=== PATIENT | female | born 1955 | race Caucasian/White ===

== ENCOUNTER 2019-03-19 12:03 | Emergency (ER) | payer OTHER ==
[2019-03-19] MEDS ORDERED: NA CHLORIDE 0.9% 1,000 ML ONE (12:24)
[2019-03-19] MEDS ORDERED: ONDANSETRON 4 MG/2 ML VIAL ONE (12:32)
[2019-03-19] MEDS ORDERED: MORPHINE 4 MG/ML SYR ONE (12:32)
[2019-03-19 12:57] LABS: Absolute Lymphocytes (CBC) 2.1 K/uL (0.7-4.9); Basophils % 0.5 % (0-1.3); Hematocrit 35.9 % (36.0-45.0); Lymphocytes % 30.5 % (15.3-44.8); MPV 9.3 fL (7.6-11.3); RBC Red Blood Cell Count 3.66 M/uL (3.86-4.86)
[2019-03-19 13:04] LABS: Albumin 3.9 g/dL (3.4-5.0); Bilirubin Direct 0.2 mg/dL (0-0.2); Bilirubin Total 0.6 mg/dL (0.2-1.0); Potassium 3.7 mmol/L (3.5-5.1); Protein, Total 6.7 g/dL (6.4-8.2)
--- NOTE | 2019-03-19 13:38 | RAD REPORT ---
EXAM DESCRIPTION: RAD - Chest Pa And Lat (2 Views) - 03/19/2019 1:12 pm CLINICAL HISTORY: DYSPNEAdyspnea COMPARISON: None. TECHNIQUE: PA and lateral views of the chest were obtained. FINDINGS: The lungs are clear. Heart size is normal and central vasculature is within normal limit s. No pleural effusion or pneumothorax seen. No acute bony finding noted. No aortic abnormality. IMPRESSION: No acute cardiopulmonary process.
--- NOTE | 2019-03-19 14:12 | RAD REPORT ---
EXAM DESCRIPTION: CT - Abdomen Pelvis W Contrast - 03/19/2019 1:42 pm CLINICAL HISTORY: ABD PAIN, patient details one-month right-sided abdominal pain history with episod ic vomiting, history of prior bowel perforation and diverticulitis, prior appendectomy COMPARISON: CT study October 2016 TECHNIQUE: Biphasic, helical CT imaging of the abdomen and pelvis was performed following 100 ml non -ionic IV contrast. No oral contrast given. All CT scans are performed using dose optimization technique as appropriate and may include automated exposure control or mA/KV adjustment according to patient size. FINDINGS: No suspicious findings in the lung bases. The liver, spleen, and pancreas show no suspicious findings. Gallbladder and biliary tree are also wi thout suspicious finding. Symmetric renal function is seen with no hydronephrosis or suspicious renal mass. No pyelonephritis o r acute parenchymal process. Urinary bladder is mostly contracted. No bladder calculus. Uterus and ov jennifer show no suspicious findings. Right ovary appears to contain a small remnant cysts similar to 20 17. No enlarging ovarian or adnexal process. No adrenal abnormalities. No stomach or small bowel acute finding. Appendix is absent. Milligan of the colon are mildly prominent throughout. Diverticulosis is present but minimal. No focal mass is present. A mild diffuse colitis w ould be possible. No significant inflammatory stranding adjacent to the colon. No free air, free fluid or pneumatosis. No hernia, mass or bulky lymphadenopathy. No suspicious bony findings. Dense arterial tree calcifications are present. IMPRESSION: No obstruction, free air or surgically emergent finding. Patient has minimal sigmoid diverticulosis but no diverticulitis. Milligan of the colon are mildly prominent without adjacent inflammatory stranding or mass. A mild colit is is possible. No abnormality. Gallbladder, biliary tree and pancreas show no suspicious findings.
--- NOTE | 2019-03-19 14:36 | ER ---
Nurse's Notes [facility] Name: Tori Rodríguez Age: 63 yrs Sex: Female : 1955 Arrival Date: 03/19/2019 Time: 12:06 Bed 15 Private MD: Diagnosis: Generalized abdominal pain-colitis Presentation: 03/19 12:25 Presenting complaint: Patient states: right abd pain X 1 month, was zain at [facility] center and sent to ER, +vomiting. Transition of care: patient was not received from another setting of care. Onset of symptoms was February 2019. Risk Assessment: Do you want to hurt yourself or someone else? Patient reports no desire to harm self or others. Initial Sepsis Screen: Does the patient meet any 2 criteria? No. Patient's initial sepsis screen is negative. Does the patient have a suspected source of infection? No. Patient's initial sepsis screen is negative. Care prior to arrival: None. 12:25 Method Of Arrival: Ambulatory iw 12:25 Acuity: BRI 3 iw Historical: - Allergies: 12:29 No Known Allergies; iw - Home Meds: 12:29 Abilify 2 mg oral tab nightly [Active]; buspirone 15 mg Oral tab 1 tab 2 times per day iw [Active]; duloxetine 60 mg oral cpDR 1 cap once daily [Active]; ferrous sulfate 325 mg (65 mg iron) Oral tab twice a day [Active]; ascorbic acid (vitamin C) 1,000 mg tab daily [Active]; carvedilol 12.5 mg oral tab 1 tab 2 times per day [Active]; gabapentin 600 mg oral tab daily [Active]; trazodone 150 mg Oral tab nightly [Active]; zolpidem 10 mg Oral tab 1 tab once daily [Active]; Ventolin HFA inhalation Nebulizer [Active]; bisacodyl 5 mg Oral TbEC 2 tabs once daily [Active]; docusate sodium 100 mg Oral tab 3 tabs once daily [Active]; - PMHx: 12:29 BOWEL PERFORATION; Diverticulitis; iw 12:54 Lung cancer; iw - PSHx: 12:29 Appendectomy; Tonsillectomy; Carpal Tunnel Repair; iw - Immunization history:: Adult Immunizations up to date. - Social history:: Smoking status: Patient uses tobacco products, smokes one pack cigarettes per day. - Ebola Screening: : Patient negative for fever greater than or equal to 101.5 degrees Fahrenheit, and additional compatible Ebola Virus Disease symptoms Patient denies exposure to infectious person Patient denies travel to an Ebola-affected area in the 21 days before illness onset No symptoms or risks identified at this time. Screenin:52 Abuse screen: Denies threats or abuse. Denies injuries from another. Nutritional ph screening: No deficits noted. Tuberculosis screening: No symptoms or risk factors identified. Fall Risk None identified. Assessment: 12:53 General: Appears in no apparent distress. uncomfortable, Behavior is calm, cooperative, ph appropriate for age, Denies fever. Pain: Complains of pain in right upper quadrant Pain radiates to right lower quadrant. Neuro: Level of Consciousness is awake, alert, obeys commands, Oriented to person, place, time, situation. Cardiovascular: Capillary refill < 3 seconds in bilateral fingers Patient's skin is warm and dry. Respiratory: Airway is patent Respiratory effort is even, unlabored, Respiratory pattern is regular, symmetrical. GI: Abdomen is round non-distended, Abd is soft X 4 quads Abdomen is tender to palpation in right upper quadrant Reports upper abdominal pain, bloating, nausea, vomiting. Derm: Skin is intact, is healthy with good turgor, Skin is pink, warm \T\ dry. Musculoskeletal: Circulation, motion, and sensation intact. Range of motion: intact in all extremities. 14:13 Reassessment: Patient appears in no apparent distress at this time. Patient and/or ph family updated on plan of care and expected duration. Pain level reassessed. Patient is alert, oriented x 3, equal unlabored respirations, skin warm/dry/pink. Pt resting quietly, awaiting CT results, VSS. 14:51 Reassessment: Patient appears in no apparent distress at this time. Patient and/or ph family updated on plan of care and expected duration. Pain level reassessed. Patient is alert, oriented x 3, equal unlabored respirations, skin warm/dry/pink. PT d/c home. Vital Signs: 12:29 BP 154 / 92; Pulse 59; Resp 16; Temp 98.2; Pulse Ox 99% on R/A; Weight 68.95 kg; Height iw 5 ft. 3 in. (160.02 cm); Pain 10/10; 14:13 BP 151 / 89; Pulse 63; Resp 20; Pulse Ox 99% on R/A; ph 14:52 BP 148 / 78; Pulse 61; Resp 16; Temp 97.8; Pulse Ox 100% on R/A; ph 12:29 Body Mass Index 26.93 (68.95 kg, 160.02 cm) iw ED Course: 12:06 Patient arrived in ED. mr 12:08 Maria Fernanda Marin FNP-C [facility]. kb 12:08 Severiano Shah MD is Attending Physician. kb 12:16 Tori Eddy, TAYLOR is Primary Nurse. ph 12:26 Triage completed. iw 12:29 Arm band placed on. iw 12:30 Initial lab(s) drawn, by me, sent to lab. kj1 12:30 Inserted saline lock: 22 gauge in left antecubital area, using aseptic technique. Blood kj1 collected. 12:50 Patient has correct armband on for positive identification. Placed in gown. Bed in low ph position. Call light in reach. Side rails up X 1. Pulse ox on. NIBP on. Door closed. Noise minimized. Warm blanket given. 12:50 Inserted saline lock: 22 gauge in left antecubital area, using aseptic technique. Blood ph collected. 13:10 Chest Pa And Lat (2 Views) XRAY In Process Unspecified. EDMS 13:42 CT Abd/Pelvis - IV Contrast Only In Process Unspecified. EDMS 14:52 No provider procedures requiring assistance completed. IV discontinued, intact, ph bleeding controlled, No redness/swelling at site. Pressure dressing applied. Administered Medications: 12:44 Drug: NS 0.9% 1000 ml Route: IV; Rate: 1000 ml; Site: left antecubital; ph 14:54 Follow up: Response: No adverse reaction; IV Status: Completed infusion ph 12:44 Drug: Zofran 4 mg Route: IVP; Site: left antecubital; ph 14:55 Follow up: Response: No adverse reaction ph 12:45 Drug: morphine 4 mg Route: IVP; Site: left antecubital; ph 14:55 Follow up: Response: No adverse reaction ph Outcome: 14:35 Discharge ordered by . kb 14:52 Discharged to home ambulatory, with significant other. ph 14:52 Condition: good 14:52 Discharge instructions given to patient, Instructed on discharge instructions, follow up and referral plans. medication usage, Demonstrated understanding of instructions, follow-up care, medications, Prescriptions given X 4. 14:55 Patient left the ED. ph Signatures: Dispatcher [employer] EDMS Maria Fernanda Marin, MARK-C FILTERING MACHINE TENDER HELPER-Kierra BlairKenyatta valle Elena Denney, TAYLOR VAZQUEZ iw Tori Eddy RN RN Tracy Marin kj1 Corrections: (The following items were deleted from the chart) 14:18 14:13 Pulse 63bpm; Resp 20bpm; Pulse Ox 99% RA; ph ph
--- NOTE | 2019-03-19 14:36 | EDPHYS ---
Physician Documentation [facility] Name: Tori Rodríguez Age: 63 yrs Sex: Female : 1955 Arrival Date: 03/19/2019 Time: 12:06 Bed 15 Private MD: ED Physician Severiano Shah HPI: 03/19 12:53 This 63 yrs old Female presents to ER via Ambulatory with complaints of kb Abdominal Pain, Shortness Of Breath. 12:53 The patient presents with abdominal pain right lower quadrant. Onset: The kb symptoms/episode began/occurred 1 month(s) ago. The symptoms do not radiate. Associated signs and symptoms: Pertinent positives: nausea, shortness of breath, vomiting. The symptoms are described as constant. Modifying factors: The symptoms are alleviated by nothing, the symptoms are aggravated by nothing. Severity of pain: At its worst the pain was moderate in the emergency department the pain is unchanged. The patient has not experienced similar symptoms in the past. The patient has not recently seen a physician. Pt reports abd pain and that started a month ago. States "I had a bowel perforation and the surgeon wanted to take out 12 inches of bowel and place a colostomy but I refused and now I think my colon is acting up again." Also reports shortness of breath. Was diagnosed with lung cancer 7 or 8 months ago, but hasn't seen an oncologist or had any treatment. States she isn't sure if she even wants treatment. Still smokes cigarettes daily. Historical: - Allergies: 12:29 No Known Allergies; iw - Home Meds: 12:29 Abilify 2 mg oral tab nightly [Active]; buspirone 15 mg Oral tab 1 tab 2 times per day iw [Active]; duloxetine 60 mg oral cpDR 1 cap once daily [Active]; ferrous sulfate 325 mg (65 mg iron) Oral tab twice a day [Active]; ascorbic acid (vitamin C) 1,000 mg tab daily [Active]; carvedilol 12.5 mg oral tab 1 tab 2 times per day [Active]; gabapentin 600 mg oral tab daily [Active]; trazodone 150 mg Oral tab nightly [Active]; zolpidem 10 mg Oral tab 1 tab once daily [Active]; Ventolin HFA inhalation Nebulizer [Active]; bisacodyl 5 mg Oral TbEC 2 tabs once daily [Active]; docusate sodium 100 mg Oral tab 3 tabs once daily [Active]; - PMHx: 12:29 BOWEL PERFORATION; Diverticulitis; iw 12:54 Lung cancer; iw - PSHx: 12:29 Appendectomy; Tonsillectomy; Carpal Tunnel Repair; iw - Immunization history:: Adult Immunizations up to date. - Social history:: Smoking status: Patient uses tobacco products, smokes one pack cigarettes per day. - Ebola Screening: : Patient negative for fever greater than or equal to 101.5 degrees Fahrenheit, and additional compatible Ebola Virus Disease symptoms Patient denies exposure to infectious person Patient denies travel to an Ebola-affected area in the 21 days before illness onset No symptoms or risks identified at this time. ROS: 12:52 Constitutional: Negative for fever, chills, and weight loss, ENT: Negative for injury, kb pain, and discharge, Neck: Negative for injury, pain, and swelling, Cardiovascular: Negative for chest pain, palpitations, and edema, Back: Negative for injury and pain, : Negative for injury, bleeding, discharge, and swelling, MS/Extremity: Negative for injury and deformity, Skin: Negative for injury, rash, and discoloration, Neuro: Negative for headache, weakness, numbness, tingling, and seizure. 12:52 Respiratory: Positive for shortness of breath. 12:52 Abdomen/GI: Positive for abdominal pain, vomiting. Exam: 12:52 Constitutional: This is a well developed, well nourished patient who is awake, alert, kb and in no acute distress. Head/Face: Normocephalic, atraumatic. ENT: Nares patent. No nasal discharge, no septal abnormalities noted. Tympanic membranes are normal and external auditory canals are clear. Oropharynx with no redness, swelling, or masses, exudates, or evidence of obstruction, uvula midline. Mucous membranes moist. Neck: Trachea midline, no thyromegaly or masses palpated, and no cervical lymphadenopathy. Supple, full range of motion without nuchal rigidity, or vertebral point tenderness. No Meningismus. Chest/axilla: Normal chest wall appearance and motion. Nontender with no deformity. No lesions are appreciated. Cardiovascular: Regular rate and rhythm with a normal S1 and S2. No gallops, murmurs, or rubs. Normal PMI, no JVD. No pulse deficits. Respiratory: Lungs have equal breath sounds bilaterally, clear to auscultation and percussion. No rales, rhonchi or wheezes noted. No increased work of breathing, no retractions or nasal flaring. Skin: Warm, dry with normal turgor. Normal color with no rashes, no lesions, and no evidence of cellulitis. MS/ Extremity: Pulses equal, no cyanosis. Neurovascular intact. Full, normal range of motion. Neuro: Awake and alert, GCS 15, oriented to person, place, time, and situation. Cranial nerves II-XII grossly intact. Motor strength 5/5 in all extremities. Sensory grossly intact. Cerebellar exam normal. Normal gait. 12:52 Abdomen/GI: Inspection: abdomen appears normal, Bowel sounds: normal, in all quadrants, Palpation: soft, in all quadrants, mild abdominal tenderness, in the right upper quadrant, moderate abdominal tenderness, in the right lower quadrant. Vital Signs: 12:29 BP 154 / 92; Pulse 59; Resp 16; Temp 98.2; Pulse Ox 99% on R/A; Weight 68.95 kg; Height iw 5 ft. 3 in. (160.02 cm); Pain 10/10; 14:13 BP 151 / 89; Pulse 63; Resp 20; Pulse Ox 99% on R/A; ph 14:52 BP 148 / 78; Pulse 61; Resp 16; Temp 97.8; Pulse Ox 100% on R/A; ph 12:29 Body Mass Index 26.93 (68.95 kg, 160.02 cm) iw MDM: 12:15 Patient medically screened. kb 12:53 Data reviewed: vital signs, nurses notes. Data interpreted: Pulse oximetry: on room air kb is 99 %. Interpretation: normal. 14:33 Counseling: I had a detailed discussion with the patient and/or guardian regarding: the kb historical points, exam findings, and any diagnostic results supporting the discharge/admit diagnosis, lab results, radiology results, the need for outpatient follow up, a family practitioner, to return to the emergency department if symptoms worsen or persist or if there are any questions or concerns that arise at home. 03/19 12:22 Order name: Basic Metabolic Panel; Complete Time: 13:05 kb 03/19 12:22 Order name: CBC with Diff; Complete Time: 13:11 kb 03/19 12:22 Order name: Hepatic Function; Complete Time: 13:05 kb 03/19 12:22 Order name: Lipase; Complete Time: 13:05 kb 03/19 12:22 Order name: CT Abd/Pelvis - IV Contrast Only; Complete Time: 14:18 kb 03/19 12:22 Order name: Chest Pa And Lat (2 Views) XRAY; Complete Time: 13:41 kb 03/19 12:22 Order name: IV Saline Lock; Complete Time: 12:45 kb 03/19 12:22 Order name: Labs collected and sent; Complete Time: 12:45 kb Administered Medications: 12:44 Drug: NS 0.9% 1000 ml Route: IV; Rate: 1000 ml; Site: left antecubital; ph 14:54 Follow up: Response: No adverse reaction; IV Status: Completed infusion ph 12:44 Drug: Zofran 4 mg Route: IVP; Site: left antecubital; ph 14:55 Follow up: Response: No adverse reaction ph 12:45 Drug: morphine 4 mg Route: IVP; Site: left antecubital; ph 14:55 Follow up: Response: No adverse reaction ph Disposition: 03/19/19 14:35 Discharged to Home. Impression: Generalized abdominal pain - colitis. - Condition is Stable. - Discharge Instructions: Abdominal Pain, Adult, [id number]. - Prescriptions for Bentyl 20 mg Oral Tablet - take 1 tablet by ORAL route every 6 hours As needed; 20 tablet. Cipro 500 mg Oral Tablet - take 1 tablet by ORAL route every 12 hours for 10 days; 20 tablet. Flagyl 500 mg Oral Tablet - take 1 tablet by ORAL route every 8 hours for 10 days; 30 tablet. Zofran 4 mg Oral Tablet - take 1 tablet by ORAL route every 6 hours As needed; 20 tablet. - Medication Reconciliation Form, Thank You Letter, Antibiotic Education, Prescription Opioid Use form. - Follow up: Emergency Department; When: As needed; Reason: Worsening of condition. Follow up: Private Physician; When: 2 - 3 days; Reason: Recheck today's complaints, Continuance of care, Re-evaluation by your physician. Addendum: 03/20/2019 15:38 Co-signature as Attending Physician, Severiano Shah MD. g s Signatures: Dispatcher [employer] EDMaria Fernanda Ramos FNP-C CORE FINISHER-Ckb Elena Denney, RN RN iw Tori Eddy RN RN ShahSeveriano MD MD Corrections: (The following items were deleted from the chart) 03/19 14:55 14:35 03/19/2019 14:35 Discharged to Home. Impression: Generalized abdominal pain - ph colitis. Condition is Stable. Forms are Medication Reconciliation Form, Thank You Letter, Antibiotic Education, Prescription Opioid Use. Follow up: Emergency Department; When: As needed; Reason: Worsening of condition. Follow up: Private Physician; When: 2 - 3 days; Reason: Recheck today's complaints, Continuance of care, Re-evaluation by your physician. kb
[2019-03-19 15:07] VITALS: BP 148/78; TEMP 97.8; O2SAT 100
== END 2019-03-19 14:55 | disposition home or self-care (01) ==
LOC: ER 12:03
DX: K52.9 Noninfective gastroenteritis and colitis, unspecified (principal); F17.210 Nicotine dependence, cigarettes, uncomplicated; Z85.118 Personal history of other malignant neoplasm of bronchus and lung
CPT/HCPCS: 96361; 85025; 80048; 36415; 80076; 83690; 74177; 71046; 96375; 96374; 99284; Q9967; J7030; J2405

== ENCOUNTER 2020-03-30 14:01 | Emergency (ER) | payer OTHER, SELFPAY ==
[2020-03-30] MEDS ORDERED: ONDANSETRON 4 MG/2 ML VIAL ONE (14:35)
[2020-03-30] MEDS ORDERED: FENTANYL CITR 100 MCG/2 ML ONE ×2 (14:35→15:16)
[2020-03-30 14:56] LABS: Protime INR 1.06
[2020-03-30 15:10] LABS: ALT/SGPT 20 U/L (12-78); AST/SGOT 20 U/L (15-37); Albumin 2.8 g/dL (3.4-5.0); Alkaline Phosphatase 135 U/L (45-117); BUN Blood Urea Nitrogen 11 mg/dL (7-18); Bicarbonate 29 mmol/L (21-32); Bilirubin Direct 0.3 mg/dL (0-0.2); Bilirubin Total 0.6 mg/dL (0.2-1.0); Glucose Level 111 mg/dL (74-106); Magnesium 1.5 mg/dL (1.8-2.4); NT PRO-BNP 807 pg/mL (<125); Potassium 3.6 mmol/L (3.5-5.1); Protein, Total 6.9 g/dL (6.4-8.2); Sodium Level 138 mmol/L (136-145)
[2020-03-30 15:11] LABS: Absolute Lymphocytes (CBC) 0.7 K/uL (0.7-4.9); Basophils % 0.8 % (0-1.3); Hematocrit 24.4 % (36.0-45.0); Lymphocytes % 25.5 % (15.3-44.8); MPV 8.3 fL (7.6-11.3); RBC Red Blood Cell Count 2.59 M/uL (3.86-4.86)
--- NOTE | 2020-03-30 15:18 | RAD REPORT ---
EXAM DESCRIPTION: Tanvi Single View03/30/2020 3:00 pm CLINICAL HISTORY: cough COMPARISON: 2018 FINDINGS: Mild right upper lobe opacity without significant change likely chronic Lungs appear clear of acute infiltrate. The heart is normal size IMPRESSION: No acute abnormalities displayed
--- OUTSIDE RECORDS SUMMARY | 2020-03-30 15:26 | XMS REPORT | Continuity of Care Document ---
:1955 Author Organization [facility] t Address [address] [place] [address] Care Team Providers Name Role Phone Theo Baker MD Primary Care Physician Moise SALAZAR, L Attending Clinician Earnestine YUSUF S Attending Clinician JANET Attending Clinician Unavailable Problems Condition Condition Condition Status Onset Resolution Last Treating Co mments Source Name Details Category Date Date Treatment Clinician Date History of History of Problem Resolve Univers hyperlipid hyperlipid HL7.CCDAR2 d ity [place] Physici ans History of History of Problem Resolve Univers hypertensi hypertensi HL7.CCDAR2 d ity of on on [place] Physici ans 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 Family History Family Member Diagnosis Comments Start Date Stop Date Source Mother Family history of [facility] it[facility] of [place] Known health Physicians problems: none Father Family history of [facility] [place] Known health Physicians problems: none Social History Social Habit Start Date Stop Date Quantity Comments Source Sex Assigned At [facility] Medications Ordered Filled Start Stop Current Ordering Indication Dosage Frequency Signature Comments Components Source Medication Medication Date Date Medication? Clinician (SIG) Name Name Lisinopril Lisinopril Yes HALIMA TAKE ONE Univers 10 MG Oral 10 MG Oral 9-21 OKPALA TABLET BY ity of Tablet Tablet 15:20: N.P. MOUTH [place] 33 DAILY Physici ans Carvedilol Carvedilol Yes HALIMA TAKE 1 Univers 25 MG Oral 25 MG Oral 4-09 OKPALA TABLET BY ity of Tablet Tablet 00:00: N.P. MOUTH [place] 00 TWICE Physici DAILY WITH ans MEALS Gabapentin Gabapentin Yes HALIMA Q0.3333D TAKE 1 Univers 600 MG Oral 600 MG Oral 4-09 OKPALA TABLET 3 ity of Tablet Tablet 00:00: N.P. TIMES [place] 00 DAILY. Physici ans TraZODone TraZODone Yes HALIMA 1 TAKE 1 Univers HCl - 150 HCl - 150 4-09 OKPAL[place] TABLET AT ity of MG Oral MG Oral 00:00: N.P. BEDTIME. Saravanan as Tablet Tablet 00 Physici ans Aspir-81 81 Aspir-81 81 Yes HALIMA QD TAKE 1 Univers MG Oral MG Oral 4-09 OKPALA TABLET ity o f Tablet Tablet 00:00: N.P. DAILY [place] Delayed Delayed 00 DIRECTED. Phys ici Release Release ans Clopidogrel Clopidogrel Yes HALIMA 1 QD TAKE 1 Univers Bisulfate Bisulfate 4-09 OKPALA TABLET i ty of 75 MG Oral 75 MG Oral 00:00: N.P. DAILY [place] Tablet Tablet 00 Physici ans Escitalopra Escitalopra Yes HALIMA TAKE 1 Univers m Oxalate m Oxalate 4-09 OKPALA TABLET BY ity of 10 MG Oral 10 MG Oral 00:00: N.P. MOUTH [place] Tablet Tablet 00 EVERY DAY Physic i ans Vital Signs Vital Name Observation Time Observation Value Comments Source BP Systolic 2017-09-09 77 mm[Hg] Location: [facility] 08:55:00 [place] Physician s BP Diastolic 2017-09-09 51 mm[Hg] Location: [facility] 08:55:00 [place] Phys[facility] s Height 2017-09-09 63 [in_us] [facility] 08:55:00 [place] Physician s Weight 2017-09-09 178 [lb_av] [facility] 08:55:00 [place] Physician s Body Mass Index 2017-09-09 31.53 kg/m2 University o f Calculated 08:55:00 [place] Physician s Heart Rate 2017-09-09 51 /min Location: R [facility] 08:55:00 Brachial [place] Physician s Artery; Procedures Procedure Date / Time Performed Performing Clinician Sim MULLER Carotid artery 2017-09-09 00:00:00 [facility] bilateral Duplex Physicians [id number] Plan of Care Planned Activity Planned Date Details Comments Source Future Scheduled 2020-02-[address] [facility] - Test 00:00:00 (#1) [code = [facility] INFLUENZA VACCINE (#1)] Future Scheduled [address] [facility] Test 00:00:00 (procedure) [code = [facility] 64963460] Future Scheduled [address] [facility] Test 00:00:00 malignant neoplasm Medical C enter of cervix (procedure) [code = 429876680] Future Scheduled [address] [facility] Test 00:00:00 malignant neoplasm Medical C enter of breast (procedure) [code = 166322962] Future Scheduled [address] [facility] - Test 00:00:00 malignant neoplasm Medical C enter of colon (procedure) [code = 614610335] Encounters Start End Encounter Admission Attending Care Care Encounter Source Date/Time Date/Time Type Type Clinicians Facility Department ID 2020-03-17 2020-03-[address] [facility] [id number] 00:00:00 00:00:00 [facility] [employer] [id number] Surgical [id number] Specialti [id number] es [address] [place] 2020-03-08 2020-03-15 Office [place] [id number] 13:28:06 15:05:11 Visit [facility] [employer] [id number] Surgical [id number] Specialti [id number] es [address] [place] 2017-12-10 2017-12-10 Appointmen EMMANUEL GONZALES [facility] [id number] Univers 11:30:00 11:30:00 t; JANET HALIMA, COTTON EXPERT ity of [place], [place] COTTON EXPERT Physici ans 2017-09-09 2017-09-09 Appointmen EMMANUEL GONZALES Neurology [id number] Univers 09:30:00 09:30:00 t; HALIMA GONZALES, COTTON EXPERT ity of [place], [place] COTTON EXPERT Physici ans Results Test Description Test Time Test Comments Results Result [facility] e Comments CT, CHEST, 2018-11-01 NEED 0.625mm CUTS FOR FINAL REPORT PATIENT WITHOUT IV 7 FUSION Moreno ID: [id number] EXAM: CONTRAST 11:11:[address] Chest, high PROTOCOLComments resolution, WITHOUT NEED 0.625mm CUTS FOR contrastINDICATION: FUSION Moreno lung mass ONLYNAV BRONCH COMPARISON: CT chest PROTOCOL from [facility] 08/12/2018. TECHNIQUE:Chest was scanned utilizing a multidetector helical scanner from the lung apex through the level of the adrenal glands without administration of IV contrast. Absence of intravenous contrast decreases sensitivity for detection of lymphadenopathy and vascular pathology. Scan was performed during supine expiration, supine inspiration and prone inspiration. Coronal and sagittal reformations were obtained. HRCT protocol was performed. High resolution reconstruction images were performed by the technologist at the scanner workstation for fusion software used by the collections associate. IV CONTRAST: None COMPLICATIONS: None RADIATION DOSE: Total DLP: 428.71 mGy*cm Estimated effective dose: (DLP x 0.014 x size factor) mSv CTDIvol has been reviewed. It is below the limits set by the Radiation Protocol Committee (RPC). Dose reduction techniques used: Automated exposure control, adjustment of the mAs and/or kVp according to patient size, standardized low-dose protocol, and/or iterative reconstruction technique. FINDINGS: LINES/ TUBES: None. LUNGS AND AIRWAYS: Mild centrilobular emphysematous changes with apical predominance. Mild bronchial wall thickening, likely related to emphysema. Right lung:*Subtle 6.5 mm groundglass nodularity in the right lung apex (lung windows image 41). This may be part of pleural-parenchymal scarring.*36 x 39 mm trabeculation multicystic lesion without significant soft tissue component in the lateral right upper lobe (image 63).*23.8 mm more focal groundglass nodularity in the right upper lobe along the inferior medial aspect of the above-mentioned multicystic lesion (image 72). Left lung:*8.4 mm triangular shaped nodularity in the left lung apex with extension to the pleura (image 39). This is likely pleural-parenchymal scarring.*6.4 x 11.5 mm spiculated nodule in the left upper lobe apex (image 49).*6.2 mm nodule in the left upper lobe (image 52).*Subtle patchy groundglass opacities in the left upper lobe (image 43). PLEURA: The pleural spaces are clear. HEART AND MEDIASTINUM: The thyroid gland is normal. No mediastinal, hilar or axillary lymphadenopathy. The heart is normal in size. There is no pericardial effusion. There are moderate atherosclerotic calcifications in the aorta and coronary arteries.. Main pulmonary artery measures 2.7 cm in diameter and ascending aorta measures 3.7 cm. UPPER ABDOMEN: Splenic calcified granuloma. Otherwise unremarkable upper abdomen. BONES: The visualized bony thorax is within normal limits. SOFT TISSUES: Unremarkable. IMPRESSION: 1.39 mm multicystic lesion in the right upper lobe with a 23.8 mm more focal groundglass region along the inferior aspect.2.11.5 mm spiculated left upper lobe nodule. Signed: Glen Gould Verified Date/Time: 11/17/2018 11:11:42 Reading Location: [facility] Reading Room [address] [place] [address]
--- OUTSIDE RECORDS SUMMARY | 2020-03-30 15:26 | XMS REPORT | Clinical Summary ---
:1955 Author Organization [facility] Address [address] [place] [address] Care Team Providers Name Role Phone Theo Baker MD Primary Care Provider Allergies Not on File Medications Not on file Active Problems Not on file Social History Tobacco Use Types Packs/Day Years Used Date Never Assessed Sex Assigned at Date Recorded Not on file Last Filed Vital Signs Not on file Plan of Treatment Health Maintenance Due Date Last Done Comments BREAST CANCER SCREENING 1955 COLON CANCER SCREENING COLONOSCOPY 1955 CERVICAL CANCER SCREENING PAP ONLY (Age 21-65) 1977 LIPID PANEL 2001 INFLUENZA VACCINE (#1) 2020 06/14/2017 Results Not on fileafter 03/30/2019
--- OUTSIDE RECORDS SUMMARY | 2020-03-30 15:34 | XMS REPORT | Summary of Care ---
:1955 Author Organization [facility] Address [address] [place] [address] Care Team Providers Name Role Phone Jim Goncalves [facility], [facility] Primary Care P ryann Encounter Details Date Type Department Care Team Description 02/24/2020 Orders Only [facility] Doctor Unassigned, No [address] [facility] [place] [facility] [place] [address] [address] [place] [address] Allergies No Known Allergiesdocumented as of this encounter (statuses as of 03/03/2020) Medications Medication Sig Dispensed Refills Start Date End Date Status busPIRone 15 mg tablet Take 15 mg by 0 Active mouth 2 (two) times daily. carvedilol (COREG) Take 12.5 mg by 0 Active 12.5 mg tablet mouth 2 (two) times daily with meals. zolpidem 10 mg tablet Take 10 mg by 0 Active mouth at bedtime. budesonide-formoterol Inhale 2 Puffs 2 10.2 g 0 06/14/2017 Active 160-4.5 mcg/actuation (two) times daily. inhaler atorvastatin 40 mg Take 1 tablet by 90 tablet 3 09/24/2017 Active tablet mouth every evening. morphine ER 30 mg 12 Take 1 tablet by 30 tablet 0 02/10/2020 Active hr tabletIndications: mouth every 8 chronic pain, (eight) hours. Metastatic cancer Indications: chronic pain, Metastatic cancer morphine IR 15 mg Take 1 tablet by 30 tablet 0 02/10/2020 Active tabletIndications: mouth every 8 chronic pain, (eight) hours as Metastatic cancer needed for Pain (scale 7-10). Indications: chronic pain, Metastatic cancer albuterol 2.5 mg /3 mL Inhale 3 mL every 1 Box 2 0 Active (0.083 %) nebulizer 4 (four) hours as solutionIndications: needed for Metastatic cancer Wheezing or Shortness of Breath (As needed for chemotherapy reactions) for up to 30 doses. bisacodyL 5 mg EC Take 2 tablets by 30 tablet 2 02/10/2020 Active tabletIndications: mouth once daily 0 Metastatic cancer, as needed for Right upper quadrant Constipation for abdominal pain up to 30 days. DULoxetine 60 mg Take 1 capsule by 30 capsule 0 02/11/2020 Active capsuleIndications: mouth daily for 30 0 Metastatic cancer, days. Right upper quadrant abdominal pain gabapentin 600 mg Take 0.5 tablets 45 tablet 0 02/10/2020 Active tabletIndications: by mouth 3 (three) 0 Metastatic cancer, times daily for 30 Right upper quadrant days. abdominal pain traZODone 150 mg Take 1 tablet by 30 tablet 0 02/10/202003/11 Active tabletIndications: mouth at bedtime 0 Metastatic cancer for 30 days. simethicone 80 mg Take 1 tablet by 120 tablet 0 02/10/2020 Active chewable mouth after meals 0 tabletIndications: and at bedtime for Metastatic cancer, 30 days. Right upper quadrant abdominal pain Polyethylene Glycol Take 1 Packet by 30 Packet 0 02/11/2020 Active 3350 17 gram mouth daily for 30 0 powderIndications: days. Metastatic cancer, Right upper quadrant abdominal pain pantoprazole 40 mg EC Take 1 tablet by 60 tablet 0 02/10/2020 Active tabletIndications: mouth 2 (two) 0 Metastatic cancer, times daily for 30 Right upper quadrant days. abdominal pain proCHLORperazine 10 mg Take 1 tablet by 30 tablet 0 02/10/2020 Active tabletIndications: mouth every 6 0 Metastatic cancer (six) hours as needed for Nausea and Vomiting (N/V) for up to 30 days. documented as of this encounter (statuses as of 03/03/2020) Active Problems Problem Noted Date E46 Unspecified severe protein-calorie malnutrition 0 01/29/2020 Metastatic cancer 01/28/2020 Overview: Added automatically from request for brigido nicole [id number] Ceci 01/28/2020 Overview: Added automatically from request for brigido nicole [id number] Abdominal pain 01/13/2020 Confusion 09/23/2017 Hypoxia 06/13/2017 Obesity (BMI 30-39.9) 06/13/2017 documented as of this encounter (statuses as of 03/03/2020) Immunizations Name Administration Dates Next Due Influenza Virus Vaccine Quad IM 3+ YRS 06/14/2017 Pneumococcal Polysaccharide, PPSV23 (PNEUMOVAX) 06/14/2017 documented as of this encounter Social History Tobacco Use Types Packs/Day Years Used Date Current Every Day Smoker Cigarettes 1 50 Smokeless Tobacco: Never Used Alcohol Use Drinks/Week oz/Week Comments Yes occasional Alcohol Habits Answer Date Recorded How often do you have a drink containing 4 or more times a w [place] 01/13/2020 alcohol? How many drinks containing alcohol do you have 1 or 2 01/13/2020 on a typical day when you are drinking? How often do you have six or more drinks on one Never 01/13/2020 occasion? Sex Assigned at Date Recorded Not on file COVID-19 Exposure Response Date Recorded In the last month, have you been in contact with No / Unsure 01/28/2020 1:25 PM CDT someone who was confirmed or suspected to have Coronavirus / COVID-19? documented as of this encounter Last Filed Vital Signs Not on filedocumented in this encounter Plan of Treatment Health Maintenance Due Date Last Done Comments HEPATITIS C (HCV) SCREEN 1955 DTaP,Tdap,and Td Vaccines (1 - Tdap) 1975 PAP SMEAR 1977 Breast Cancer Screening (MAMMOGRAM) 1996 Zoster Recombinant Vaccine (SHINGRIX) (1 2006 of 2) PNEUMOCOCCAL 0-64 YEARS COMBINED SERIES (2 06/14/201806/14 of 3 - PCV13) INFLUENZA VACCINE (#1) 2020 06/14/2017, 06/14/2017 LUNG CANCER SCREEN: Recommended for age 0801/13/2021 01/14/20 20 55-80 with 30 + pack year history Depression Screening 02/04/2021 02/05/2020, 02/05/2020 documented as of this encounter Procedures Procedure Name Priority Date/Time Associated Diagnosis Comme nts AUTHORIZATION FOR RELEASE Routine 02/24/2020 12:01 AM OF PHI CDT documented in this encounter Results Not on filedocumented in this encounter Insurance Payer Benefit Plan / Subscriber ID Effective Dates Phone Addre ss Type Group [employer] [id number] 2020-Present Medicare Adv [place] H[employer] documented as of this encounter
--- OUTSIDE RECORDS SUMMARY | 2020-03-30 15:34 | XMS REPORT | Summary of Care ---
:1955 Author Organization [facility] Address [address] [place] [address] Care Team Providers Name Role Phone Jim Goncalves [facility], [facility] Primary Care P ryann Encounter Details Date Type Department Care Team Description 03/08/2020 Orders Only [facility] Doctor Unassigned, No [address] [facility] [place] [address] [address] [place] [address] Allergies No Known Allergiesdocumented as of this encounter (statuses as of 03/08/2020) Medications Medication Sig Dispensed Refills Start Date [...] as of this encounter (statuses as of 03/08/2020) Active Problems Problem Noted Date E46 Unspecified severe protein-calorie malnutrition 0 01/29/2020 Metastatic cancer 01/28/2020 Overview: Added automatically from request for brigido nicole [id number] Ceci 01/28/2020 Overview: Added automatically from request for brigido nicole [id number] Abdominal pain 01/13/2020 Confusion 09/23/2017 Hypoxia 06/13/2017 Obesity (BMI 30-39.9) 06/13/2017 documented as of this encounter (statuses as of 03/08/2020) Immunizations Name Administration Dates Next Due Influenza [...] containing 4 or more times a w [place] 01/13/2020 alcohol? How many drinks containing alcohol do you have 1 or 2 01/13/2020 on a typical day when you are drinking? How often do you have six or more drinks on one Never 01/13/2020 occasion? Sex Assigned at Date Recorded Not on file documented as of this encounter Last Filed Vital Signs Not on filedocumented in this encounter Plan of Treatment Date Type Specialty Care Team Description 03/08/2020 Office Visit Orthopedic Surgery Federico Colby, PAC [address] [place] [phone] Health Maintenance Due Date Last Done Comments [...] Name Priority Date/Time Associated Diagnosis Comme nts CONSENT/REFUSAL FOR Routine 03/08/2020 1:26 PM DIAGNOSIS AND TREATMENT CDT ASSIGNMENT OF BENEFITS Routine 03/08/2020 1:25 PM CDT documented in this encounter Results Not on filedocumented in this encounter Insurance Payer Benefit Plan / Subscriber ID Effective Dates Phone Addre ss Type Group [employer] [id number] 2020-Present Medicare Adv [place] H[employer] documented as of this encounter
--- OUTSIDE RECORDS SUMMARY | 2020-03-30 15:35 | XMS REPORT | Summary of Care ---
:1955 Author Organization [facility] Address [address] [place] [address] Care Team Providers Name Role Phone Jim Goncalves [facility], [facility] Primary Care P fabioder Reason for Visit Radiology Services (Routine) Status Reason Specialty Diagnoses / Referred By Referred To Procedures Contact Contact New Request Diagnostic Diagnoses Acute pain of right shoulder Federico Colby, Radiology Procedures XR SHOULDER <2 VW RIGHT [facility] [address] [place] [address] Encounter Details Date Type Department Care Team Description 03/08/2020 Hospital Encounter [facility] Federico Colby , [facility] - PAC Radiology [address] [place] [phone] Allergies No Known Allergiesdocumented as of this encounter (statuses as of 03/09/2020) Medications Medication Sig Dispensed Refills Start Date [...] as of this encounter (statuses as of 03/09/2020) Active Problems Problem Noted Date E46 Unspecified severe protein-calorie malnutrition 0 01/29/2020 Metastatic cancer 01/28/2020 Overview: Added automatically from request for brigido nicole [id number] [place] 01/28/2020 Overview: Added automatically from request for brigido nicole [id number] Abdominal pain 01/13/2020 Confusion 09/23/2017 Hypoxia 06/13/2017 Obesity (BMI 30-39.9) 06/13/2017 documented as of this encounter (statuses as of 03/09/2020) Immunizations Name Administration Dates Next Due Influenza [...] containing 4 or more times a w [place] 01/13/2020 alcohol? How many drinks containing alcohol do you have 1 or 2 01/13/2020 on a typical day when you are drinking? How often do you have six or more drinks on one Never 01/13/2020 occasion? Sex Assigned at Date Recorded Not on file COVID-19 Exposure Response Date Recorded In the last month, have you been in contact with No / Unsure 03/08/2020 1:30 PM CDT someone who was confirmed or [...] Name Priority Date/Time Associated Diagnosis Comme nts XR SHOULDER <2 VW Routine 03/08/2020 1:58 PM Acute pain of ri ght Results for this RIGHT CDT shoulder procedure are i n the results section. documented in this encounter Results XR SHOULDER <2 VW RIGHT (03/08/2020 1:58 PM CDT) Specimen Narrative Performed At This result has an attachment that is no t available. There is an ill-defined mass in her subacromial space that measures 12 x PACS 18.3 mm her humerus is inferiorly depressed as is seen in a rotator cuff arthropathy. Performing Organization Address City/State/Zipcode Phone Number PACS documented in this encounter Visit Diagnoses Diagnosis Acute pain of right shoulder documented in this encounter Insurance Payer Benefit Plan / Subscriber ID Effective Dates Phone Addre ss Type Group [employer] [id number] 2020-Present Medicare Adv spring [place] (Home) [place] [address] documented as of this encounter
--- OUTSIDE RECORDS SUMMARY | 2020-03-30 15:35 | XMS REPORT | Summary of Care ---
:1955 Author Organization [facility] Address [address] [place] [address] Care Team Providers Name Role Phone Jim Goncalves [facility] Primary Care P rovider Reason for Referral Radiology Services (Routine) Status Reason Specialty Diagnoses / Referred By Referred To Procedures Contact Contact New Request Diagnostic Diagnoses Acute pain of right shoulder Federico Colby, Radiology Procedures XR SHOULDER <2 VW RIGHT PAC [address] [place] [address] Reason for Visit Reason Comments New Patient Right Arm Pain (Routine) Status Reason Specialty Diagnoses / Referred By Referred To Procedures Contact Contact Authorized PA-PHYSICIAN Diagnoses Pain in right shoulder POSTDOCTORAL SCHOLAR/Right Arm Pain/No Films Donavon Clark Brett S, PRICE ECONOMIST / Procedures CONSULT/REFERRAL ORTHOPAEDIC SURGERY NEW VISIT (FIRST TIME) G, DO PAC Orthopedic Surgery [address] [facility] [phone] Phone: Fax: Encounter Details Date Type Department Care Team Description 03/08/2020 Office Visit [facility] Orthopaedic Federico Colby, Woodrow cute pain of right Surgery- [facility] shoulder (Primary Dx) [address] [place] [address] [place], [place] [phone] Allergies No Known Allergiesdocumented as of this [...] Overview: Added automatically from request for brigido bonnie [id number] Melena 01/28/2020 Overview: Added automatically from request for brigido bonnie [id number] Abdominal pain 01/13/2020 Confusion 09/23/2017 Hypoxia 06/13/2017 [...] containing 4 or more times a w solomon 01/13/2020 alcohol? How many drinks containing alcohol [...] of this encounter Last Filed Vital Signs Vital Sign Reading Time Taken Comments Blood Pressure 112/74 03/08/2020 1:31 PM CDT Pulse 92 03/08/2020 1:31 PM CDT Temperature - - Respiratory Rate - - Oxygen Saturation - - Inhaled Oxygen Concentration - - Weight 54.4 kg (120 lb) 03/08/2020 1:31 PM CDT Height 160 cm (5' 3") 03/08/2020 1:31 PM CDT Body Mass Index 21.26 03/08/2020 1:31 PM CDT documented in this encounter Progress Notes Federico Colby, PAC - 03/08/2020 2:00 PM CDT Cc: Chief Complaint Patient presents with New Patient Right Arm Pain POSTDOCTORAL SCHOLAR - Right shoulder pain - Onset over 2 months ago. Unsure of injury then but she fell yesterday. Limited ROM, pain with all directions. She was diagnosed with stage IV lung cancer recently. She had pain prior to being diagnosed. She has tried Tylenol for pain without relief. No films available today.Lisbet Reid 03/08/2020 1:37 PM Tori Rodríguez is a 64 year old female. Her for right shoulder pain onset over 2 months ago. The pain is in the lateral subacromial space. Can't move her arm into abduction or flexion she has severe pain if she tries. Is her first encountered to assess her right shoulder. She hasn't had any shoulder images. She's been treated at the cancer center in [place] for lung cancer he hasn't had surgery. Having chemotherapy and radiation. Her shoulder pain preceded the radiation. She's stage IV. He does have metastasis. She received hydrocodone from the Cancer Center Allergies Tori has No Known Allergies. Medications Outpatient Medications Prior to Visit Medication Sig Dispense Refill albuterol 2.5 mg /3 mL (0.083 %) nebulizer solution Inhale 3 mL every 4 (four) hours as needed for Wheezing or Shortness of Breath (As needed for chemotherapy reactions) for up to 30 doses. 1 Box 2 bisacodyL 5 mg EC tablet Take 2 tablets by mouth once daily as needed for Constipation for up to30 days. 30 tablet 2 DULoxetine 60 mg capsule Take 1 capsule by mouth daily for 30 days. 30 capsule 0 gabapentin 600 mg tablet Take 0.5 tablets by mouth 3 (three) times daily for 30 days. 45 tablet 0 morphine ER 30 mg 12 hr tablet Take 1 tablet by mouth every 8 (eight) hours. Indications: chronic pain, Metastatic cancer 30 tablet 0 morphine IR 15 mg tablet Take 1 tablet by mouth every 8 (eight) hours as needed for Pain (scale 7-10). Indications: chronic pain, Metastatic cancer 30 tablet 0 pantoprazole 40 mg EC tablet Take 1 tablet by mouth 2 (two) times daily for 30 days. 60 tablet 0 Polyethylene Glycol 3350 17 gram powder Take 1 Packet by mouth daily for 30 days. 30 Packet 0 proCHLORperazine 10 mg tablet Take 1 tablet by mouth every 6 (six) hours as needed for Nausea and Vomiting (N/V) for up to 30 days. 30 tablet 0 simethicone 80 mg chewable tablet Take 1 tablet by mouth after meals and at bedtime for 30 days.120 tablet 0 traZODone 150 mg tablet Take 1 tablet by mouth at bedtime for 30 days. 30 tablet 0 atorvastatin 40 mg tablet Take 1 tablet by mouth every evening. 90 tablet 3 budesonide-formoterol 160-4.5 mcg/actuation inhaler Inhale 2 Puffs 2 (two) times daily. 10.2 g 0 busPIRone 15 mg tablet Take 15 mg by mouth 2 (two) times daily. carvedilol (COREG) 12.5 mg tablet Take 12.5 mg by mouth 2 (two) times daily with meals. zolpidem 10 mg tablet Take 10 mg by mouth at bedtime. No facility-administered medications prior to visit. Histories Past Medical History: Diagnosis Date Chronic pain CVA (cerebral vascular accident) Left sided weakness HTN (hypertension) Insomnia Neuropathy JOSEPH (obstructive sleep apnea) Smoker Past Surgical History: Procedure Laterality Date ADENOIDECTOMY SECTION COLECTOMY Appendectomy COLONOSCOPY N/A 02/05/2020 Surgeon: Maxi Tanner MD; Location: [facility]oscopy ([facility]) OR Location ESOPHAGOGASTRODUODENOSCOPY N/A 02/05/2020 Surgeon: Maxi Tanenr MD; Location: Endoscopy ([facility]) OR Location OPEN CARPAL TUNNEL RELEASE Bilateral Social History Socioeconomic History Marital status: Spouse name: Not on file Number of children: Not on file Years of education: Not on file Highest education level: Not on file Occupational History 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 Social Needs Financial resource strain: Patient refused Food insecurity Worry: Patient refused Inability: Patient refused Transportation needs Medical: Patient refused Non-medical: Patient refused Tobacco Use Smoking status: Current Every Day Smoker Packs/day: 1.00 Years: 50.00 Pack years: 50.00 Types: Cigarettes Smokeless tobacco: Never Used Substance and Sexual Activity Alcohol use: Yes Frequency: 4 or more times a week Drinks per session: 1 or 2 Binge frequency: Never Comment: occasional Drug use: No Sexual activity: Yes Partners: Male control/protection: Post-menopausal Lifestyle Physical activity Days per week: Patient refused Minutes per session: Patient refused Stress: Patient refused Relationships Social connections Talks on phone: Patient refused Gets together: Patient refused Attends denominational service: Patient refused Active member of club or organization: Patient refused Attends meetings of clubs or organizations: Patient refused Relationship status: Patient refused Intimate partner violence Fear of current or ex partner: Patient refused Emotionally abused: Patient refused Physically abused: Patient refused Forced sexual activity: Patient refused Other Topics Concern Not on file Social History Narrative Tori Rodríguez is a 64 year old female who lives in [facility] in a house and lives by herself. Family History Problem Relation Age of Onset Diabetes Mother Lung Cancer Mother Diabetes Sister Liver failure Sister Diabetes Brother Review of Systems Vital Signs BP 112/74 | Pulse 92 | Ht 63" (160 cm) | Wt 54.4 kg (120 lb) | LMP (LMP Unknown) | BMI 21.26 kg/m Physical Exam Musculoskeletal: Comments: Physical Exam Constitutional: oriented to person, place, and time. appears well-developed and well-nourished. HENT: Head: Normocephalic and atraumatic. Right Ear: External ear normal. Left Ear: External ear normal. Eyes: Conjunctivae are normal. Neck: Normal range of motion. No strabismus Neck supple. Cardiovascular: Normal rate and regular rhythm. Pulmonary/Chest: Normal respiratory rate equal chest rise and fall in no apparent distress Abdominal: Abdomen nondistended nontender Neurological: alert and oriented to person, place, and time. No asymmetry Skin: Skin is warm and dry. Psychiatric: normal mood and affect. behavior is normal. Judgment and thought content normal. Nursing note and vitals reviewed. Right shoulder she has lateral subacromial pain this is exacerbated with range of motion she is ableto flex 30 and passively we were able to abduct her to 90 after 90 of shoulder abduction she compensated with her scapula this was a firm endpoint Assessment/Plan 1. Acute pain of right shoulder XR SHOULDER <2 VW RIGHT Right shoulder pain her physical exam is consistent with a frozen shoulder. There is an ill-defined mass in the subacromial space on x-ray this could be artifact from the scapula or could be related tosome type of space-occupying mass in her shoulder. As the onset was the same time as her stage IV lung cancer we will send her for an MRI of her shoulder. In the meantime she will work on wall crawl and rope and daniela exercises for abduction and flexion. Also she will check with her oncologist about anti-inflammatories. documented in this encounter Plan of Treatment Health [...] 02/05/2020, 02/05/2020 documented as of this encounter Results XR SHOULDER <2 VW [...] Diagnoses Diagnosis Acute pain of right shoulder - Primary documented in this encounter Insurance Payer Benefit Plan / Subscriber ID Effective Dates Phone Addre ss Type Group [id number] 2020-Present Medicare Adv spring HMO (Home) [place] [address] documented as of this encounter
--- OUTSIDE RECORDS SUMMARY | 2020-03-30 15:35 | XMS REPORT | Summary of Care ---
:1955 Author Organization [facility] Address [address] [place] [address] Care Team Providers Name Role Phone Jim Goncalves [facility] Primary Care P rovider Reason for Referral Radiology Services (Routine) Status Reason Specialty Diagnoses / Referred By Referred To Procedures Contact Contact New Request Diagnostic Diagnoses Acute pain of right shoulder Federico Colby, Radiology Procedures XR SHOULDER <2 VW RIGHT PAC [address] [place] [address] Reason for Visit Reason Comments New Patient Right Arm Pain (Routine) Status Reason Specialty Diagnoses / Referred By Referred To Procedures Contact Contact Authorized PA-PHYSICIAN Diagnoses 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 Pain/No Films Donavon Clark Brett S, BURGLAR ALARM ASSEMBLER / Procedures CONSULT/REFERRAL ORTHOPAEDIC SURGERY NEW VISIT (FIRST TIME) G, DO PAC Orthopedic Surgery [address] [facility] [phone] Phone: Fax: Encounter Details Date Type Department Care Team Description 03/08/2020 Office Visit [facility] Orthopaedic Federico Colby, Woodrow cute pain of right Surgery- [facility] shoulder (Primary Dx) [address] [place] [address] [place], [place] [phone] Allergies No Known Allergiesdocumented as of this [...] Added automatically from request for brigido bonnie [id number] Melena 01/28/2020 Overview: Added automatically from request for brigido bonnie [id number] Abdominal pain 01/13/2020 Confusion 09/23/2017 Hypoxia 06/13/2017 [...] containing 4 or more times a w grayling 01/13/2020 alcohol? 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 [...] COLECTOMY Appendectomy COLONOSCOPY N/A 02/05/2020 Surgeon: Maxi Tnaner MD; Location: Endoscopy ([facility]) OR Location ESOPHAGOGASTRODUODENOSCOPY N/A 02/05/2020 Surgeon: Maxi Tanner MD; Location: Endoscopy ([facility]) OR Location OPEN [...] Patient refused Gets together: Patient refused Attends confucianist service: Patient refused Active member of club [...] 64 year old female who lives in [facility] in a house and lives by herself. [...] Effective Dates Phone Addre ss Type Group PhoneFusion [id number] 2020-Present Medicare Adv spring HMO (Home) [place] [address] documented as of this encounter
[2020-03-30] MEDS ORDERED: Magnesium Sulfate 2gm IVPB 2 G/50 ML BAG IV ONE (15:36)
[2020-03-30] MEDS ORDERED: NA CHLORIDE 0.9% 500 ML ONE (15:36)
--- OUTSIDE RECORDS SUMMARY | 2020-03-30 15:36 | XMS REPORT | Summary of Care ---
:1955 Author Organization [facility] Address [address] [place] [address] Care Team Providers Name Role Phone Jim Goncalves [facility] Primary Care P rovider Reason for Referral MRI/CAT Scan (Routine) Status Reason Specialty Diagnoses / Referred By Referred To Procedures Contact Contact Pending Review Diagnostic Diagnoses Acute pain of right shoulder Federico Colby S, Radiology Procedures MR SHOULDER RIGHT WO CONTRAST PAC [address] [place] [address] Radiology Services (Routine) Status Reason Specialty Diagnoses / Referred By Referred To Procedures Contact Contact New Request Diagnostic Diagnoses Acute pain of right shoulder Nedra Colbytt S, Radiology Procedures XR SHOULDER <2 VW RIGHT PAC [address] [place] [address] Reason for Visit Reason Comments New Patient Right Arm Pain (Routine) Status Reason Specialty Diagnoses / Referred By Referred To Procedures Contact Contact Authorized PA-PHYSICIAN Diagnoses Pain in right shoulder 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 CAR 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 Pain/No Films AgliecoDonavon Brett S, ROOF FIXER / Procedures CONSULT/REFERRAL ORTHOPAEDIC SURGERY NEW VISIT (FIRST TIME) G, DO PAC Orthopedic Surgery [address] [facility] [phone] Phone: Fax: Encounter Details Date Type Department Care Team Description 03/08/2020 Office Visit [facility] Orthopaedic ColbyFederico S, A cute pain of right Surgery- [facility] shoulder (Primary Dx) [address] [place] [address] [place], [place] [phone] Allergies No Known Allergiesdocumented as of this encounter (statuses as of 03/15/2020) Medications Medication Sig Dispensed Refills Start Date [...] 0 06/14/2017 Active 160-4.5 mcg/actuation (two) times inhaler daily. atorvastatin 40 mg Take 1 tablet by [...] 2 tablets by 30 tablet 2 02/10/2020 tabletIndications: mouth once daily 0 Metastatic cancer, as needed for Right upper quadrant Constipation for abdominal pain up to 30 days. DULoxetine 60 mg Take 1 capsule by 30 capsule 0 02/11/2020 capsuleIndications: mouth daily for 0 Metastatic cancer, 30 days. Right upper quadrant abdominal pain gabapentin 600 mg Take 0.5 tablets 45 tablet 0 02/10/2020 tabletIndications: by mouth 3 0 Metastatic cancer, (three) times Right upper quadrant daily for 30 abdominal pain days. traZODone 150 mg Take 1 tablet by 30 tablet 0 02/10/202003/11 tabletIndications: mouth at bedtime 0 Metastatic cancer for 30 days. simethicone 80 mg Take 1 tablet by 120 tablet 0 02/10/2020 chewable mouth after meals 0 tabletIndications: and at bedtime Metastatic cancer, for 30 days. Right upper quadrant abdominal pain Polyethylene Glycol Take 1 Packet by 30 Packet 0 02/11/2020 3350 17 gram mouth daily for 0 powderIndications: 30 days. Metastatic cancer, Right upper quadrant abdominal pain pantoprazole 40 mg EC Take 1 tablet by 60 tablet 0 02/10/2020 tabletIndications: mouth 2 (two) 0 Metastatic cancer, times daily for Right upper quadrant 30 days. abdominal pain proCHLORperazine 10 mg Take 1 tablet by 30 tablet 0 02/10/2020 tabletIndications: mouth every 6 0 Metastatic cancer (six) hours as needed for Nausea and Vomiting (N/V) for up to 30 days. documented as of this encounter (statuses as of 03/15/2020) Active Problems Problem Noted Date E46 Unspecified severe protein-calorie malnutrition 0 01/29/2020 Metastatic cancer 01/28/2020 Overview: Added automatically from request for brigido bonnie [id number] Melena 01/28/2020 Overview: Added automatically from request for brigido bonnie [id number] Abdominal pain 01/13/2020 Confusion 09/23/2017 Hypoxia 06/13/2017 Obesity (BMI 30-39.9) 06/13/2017 documented as of this encounter (statuses as of 03/15/2020) Immunizations Name Administration Dates Next Due Influenza [...] containing 4 or more times a w [place] 01/13/2020 alcohol? 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 [...] Patient refused Gets together: Patient refused Attends spiritism service: Patient refused Active member of club [...] 64 year old female who lives in [facility] in a house and lives by [...] oncologist about anti-inflammatories. documented in this encounter Miscellaneous Notes Addendum Note - Paulino Dwyer - 03/08/2020 2:00 PM CDT Addended by: PAULINO DWYER on: 03/15/2020 03:05 PM Modules accepted: Orders documented in this encounter Plan of Treatment Name Type Priority Associated Diagnoses Order S chedule MR SHOULDER RIGHT WO IMAGING Routine Acute pain of right Expected: 03/15/2020, CONTRAST shoulder Expires: 2020 Health Maintenance Due Date Last Done Comments [...] Effective Dates Phone Addre ss Type Group tracx [id number] 2020-Present Medicare Adv spring HMO documented as of this encounter
--- OUTSIDE RECORDS SUMMARY | 2020-03-30 15:36 | XMS REPORT | Summary of Care ---
:1955 Author Organization [facility] Address [address] [place] [address] Care Team Providers Name Role Phone Jim Goncalves [facility] Primary Care P ryann Encounter Details Date Type Department Care Team Description 02/23/2020 Orders Only [facility] Doctor Unassigned, No [address] [facility] [place] [address] [address] [place] [address] Allergies No Known Allergiesdocumented as of this encounter (statuses as of 03/10/2020) Medications Medication Sig Dispensed Refills Start Date [...] as of this encounter (statuses as of 03/10/2020) Active Problems Problem Noted Date E46 Unspecified severe protein-calorie malnutrition 0 01/29/2020 Metastatic cancer 01/28/2020 Overview: Added automatically from request for brigido nicole [id number] Ceci 01/28/2020 Overview: Added automatically from request for brigido nicole [id number] Abdominal pain 01/13/2020 Confusion 09/23/2017 Hypoxia 06/13/2017 Obesity (BMI 30-39.9) 06/13/2017 documented as of this encounter (statuses as of 03/10/2020) Immunizations Name Administration Dates Next Due Influenza [...] containing 4 or more times a w mcgrath 01/13/2020 alcohol? How many drinks containing alcohol [...] Diagnosis Comme nts AUTHORIZATION FOR RELEASE Routine 02/23/2020 12:01 AM OF PHI CDT documented in this encounter Results Not on filedocumented in this encounter Insurance Payer Benefit Plan / Subscriber ID Effective Dates Phone Addre ss Type Group Inspro [id number] 2020-Present Medicare Adv spring HMO documented as of this encounter
--- OUTSIDE RECORDS SUMMARY | 2020-03-30 15:36 | XMS REPORT | Summary of Care ---
:1955 Author Organization [facility] Address [address] [place] [address] Care Team Providers Name Role Phone Jim Goncalves [facility], [facility] Primary Care P ryann Encounter Details Date Type Department Care Team Description 03/02/2020 Orders Only [facility] Doctor Unassigned, No [address] [facility] [place] [address] [address] [place] [address] Allergies No Known Allergiesdocumented as of this encounter (statuses as of 03/15/2020) Medications Medication Sig Dispensed Refills Start Date End Date Status busPIRone 15 mg Take 15 mg by mouth 0 Active tablet 2 (two) times daily. carvedilol (COREG) Take 12.5 mg by 0 Active 12.5 mg tablet mouth 2 (two) times daily with meals. zolpidem 10 mg Take 10 mg by mouth 0 Active tablet at bedtime. budesonide-formotero Inhale 2 Puffs 2 10.2 g 0 06/14/2017 Active l 160-4.5 (two) times daily. mcg/actuation inhaler atorvastatin 40 mg Take 1 tablet by 90 tablet 3 09/24/2017 Active tablet mouth every evening. morphine ER 30 mg 12 Take 1 tablet by 30 tablet 0 02/10/2020 Active hr mouth every 8 tabletIndications: (eight) hours. chronic pain, Indications: chronic Metastatic cancer pain, Metastatic cancer morphine IR 15 mg Take 1 tablet by 30 tablet 0 02/10/2020 Active tabletIndications: mouth every 8 chronic pain, (eight) hours as Metastatic cancer needed for Pain (scale 7-10). Indications: chronic pain, Metastatic cancer albuterol 2.5 mg /3 Inhale 3 mL every 4 1 Box 2 02/10/2020 Active mL (0.083 %) (four) hours as nebulizer needed for Wheezing solutionIndications: or Shortness of Metastatic cancer Breath (As needed for chemotherapy reactions) for up to 30 doses. documented as of this encounter (statuses as of 03/15/2020) Active Problems Problem Noted Date E46 Unspecified severe protein-calorie malnutrition 0 01/29/2020 Metastatic cancer 01/28/2020 Overview: Added automatically from request for brigido bonnie [id number] Melena 01/28/2020 Overview: Added automatically from request for brigido nicole [id number] Abdominal pain 01/13/2020 Confusion 09/23/2017 Hypoxia 06/13/2017 [...] containing 4 or more times a w shinnecock 01/13/2020 alcohol? How many drinks containing alcohol [...] Name Priority Date/Time Associated Diagnosis Comme nts REFERRAL- Routine 03/02/2020 12:01 AM CDT REQUEST/RESPONSE documented in this encounter Results Not on filedocumented in this encounter Insurance Payer Benefit Plan / Subscriber ID Effective Dates Phone Addre ss Type Group Fast[employer] [id number] 2020-Present Medicare Adv spring HMO documented as of this encounter
--- OUTSIDE RECORDS SUMMARY | 2020-03-30 15:36 | XMS REPORT | Summary of Care ---
:1955 Author Organization [facility] Address [address] [place] [id number] Care Team Providers Name Role Phone Jim Goncalves [facility] Primary [facility] P rovider Reason for Referral MRI/CAT Scan (Routine) Status Reason Specialty Diagnoses / Referred By Referred To Procedures Contact Contact New Request Diagnostic Diagnoses Acute pain of right shoulder Federico Colby, Radiology Procedures MR SHOULDER RIGHT WO CONTRAST PAC [address] [place] [address] Reason for Visit Reason Comments Orders Encounter Details Date Type Department Care Team Description 03/17/2020 Telephone [facility] Orthopaedic Ross Phipps MD Orders Surgery- [place] [address] [facility] [place] [address] [address] [place] [address] Allergies No Known Allergiesdocumented as of this encounter (statuses as of 03/17/2020) Medications Medication Sig Dispensed Refills Start Date [...] as of this encounter (statuses as of 03/17/2020) Active Problems Problem Noted Date E46 Unspecified severe protein-calorie malnutrition 0 01/29/2020 Metastatic cancer 01/28/2020 Overview: Added automatically from request for brigido bonnie [id number] Melena 01/28/2020 Overview: Added automatically from request for brigido bonnie [id number] Abdominal pain 01/13/2020 Confusion 09/23/2017 Hypoxia 06/13/2017 Obesity (BMI 30-39.9) 06/13/2017 documented as of this encounter (statuses as of 03/17/2020) Immunizations Name Administration Dates Next Due Influenza [...] containing 4 or more times a w [place] 01/13/2020 alcohol? How many drinks containing alcohol [...] Signs Not on filedocumented in this encounter Miscellaneous Notes Telephone Encounter - Lisbet Reid - 03/17/2020 12:56 PM CDTOrders entered for [facility]. Lisbet Reid 03/17/2020 12:56 PM elephone Encounter - Ladonna Locke - [facility] is Outside.in and they was unable to see her. Can you please send the MRI order to a different facility? Thank you. documented in this encounter Plan of Treatment Name Type Priority Associated Diagnoses Order S chedule MR SHOULDER RIGHT WO IMAGING Routine Acute pain of right Expected: 03/17/2020, CONTRAST shoulder Expires: 2020 Health Maintenance Due [...] 02/05/2020 documented as of this encounter Results Not on filedocumented in this encounter Visit Diagnoses Diagnosis Acute pain of right shoulder - Primary documented in this encounter Insurance Payer Benefit Plan / Subscriber ID Effective Dates Phone Addre ss Type Group [employer] [id number] 2020-Present Medicare [facility] HMO documented as of this encounter
[2020-03-30] MEDS ORDERED: HYDROMORPHONE HCL 1 MG/ML INJ ONE (15:53)
--- NOTE | 2020-03-30 16:28 | RAD REPORT ---
EXAM DESCRIPTION: CT - Abdomen Pelvis W Contrast - 03/30/2020 3:52 pm CLINICAL HISTORY: Abdominal pain COMPARISON: 2019 TECHNIQUE: Computed axial tomography of the abdomen pelvis was obtained. 100 cc Isovue-300 was admin istered intravenously. Oral contrast was not requested which limits evaluation of bowel. All CT scans are performed using dose optimization technique as appropriate and may include automated exposure control or mA/KV adjustment according to patient size. FINDINGS: A 8 centimeter right adrenal mass. A 10 centimeter left adrenal mass. Both contain areas n ecrosis and have developed since the prior exam. Mild dilatation of the intrahepatic biliary tree. The common bile duct measures 11 millimeters Otherwise, the liver, spleen, pancreas and kidneys appear unremarkable. A 5.1 centimeter mass has developed within the left mid to upper pelvis near midline. Several periaor tic/caval lymph nodes measure up to 2.5 centimeters. Moderate amount of stool is present throughout the colon. 1.5 centimeter lesion within the left ilium. Callus formation is present about a lower posterior left rib fracture. Subacute nondisplaced additional left lower posterior rib fracture IMPRESSION: Bilateral adrenal masses, left ilium lesion and lymphadenopathy consistent with metastat ic disease Mild dilatation of the biliary tree could be secondary to a stone, stricture or small periampullary n eoplasm not visualized on this exam
[2020-03-30] MEDS ORDERED: MAGNESIUM CITRATE 300 ML BOT ONE (17:00)
[2020-03-30] MEDS ORDERED: FLEET ENEMA ADULT PR ONE ×2 (17:00→17:40)
[2020-03-30 17:22] LABS: Anisocytosis 2+; Blood Morphology Comment NOTED (NOT SEEN); Platelet Estimate DECR; Toxic Granulation PRESENT; White Blood Cell Scan DIFF (OK)
[2020-03-30 17:23] LABS: Ovalocytes SLIGHT; Poikilocytosis 1+; Teardrop Cell FEW
--- NOTE | 2020-03-30 19:19 | EDPHYS ---
Physician Documentation [facility] Name: Tori Rodríguez Age: 64 yrs Sex: Female : 1955 Arrival Date: 03/30/2020 Time: 14:03 Bed 20 Private MD: ED Physician Cee Mcdonald HPI: 03/30 16:34 This 64 yrs old Female presents to ER via Wheelchair with complaints of jr8 Constipation. 16:34 The patient presents to the ED c/o constipation. The patient states she has not had a jr8 bowel movement in 5 weeks. Currently complains of sharp, cramping, generalized abdominal pain. She is currently getting chemo, and her last treatment was Saturday. Reports a history of lung cancer, with mets to the spine and abdomen. States that she has taken Ex-Lax and other laxatives recommended by her doctor with no relief.. Historical: - Allergies: 14:12 No Known Allergies; ll1 - Home Meds: 14:38 Abilify 2 mg Oral tab nightly [Active]; ascorbic acid (vitamin C) 1,000 mg tab daily hb [Active]; bisacodyl 5 mg Oral TbEC 2 tabs once daily [Active]; buspirone 15 mg Oral tab 1 tab 2 times per day [Active]; carvedilol 12.5 mg Oral tab 1 tab 2 times per day [Active]; docusate sodium 100 mg Oral tab 3 tabs once daily [Active]; duloxetine 60 mg Oral cpDR 1 cap once daily [Active]; ferrous sulfate 325 mg (65 mg iron) Oral tab twice a day [Active]; gabapentin 600 mg Oral tab daily [Active]; trazodone 150 mg Oral tab nightly [Active]; Ventolin HFA inhalation Nebulizer [Active]; zolpidem 10 mg Oral tab 1 tab once daily [Active]; - PMHx: 14:12 BOWEL PERFORATION; Diverticulitis; Lung Cancer; with mets; ll1 - PSHx: 14:12 Appendectomy; Tonsillectomy; Carpal Tunnel Repair; ll1 - Immunization history:: Flu vaccine is up to date. - Social history:: Smoking status: Patient denies any tobacco usage or history of. ROS: 14:33 Eyes: Negative for injury, pain, redness, and discharge, ENT: Negative for injury, jr8 pain, and discharge, Neck: Negative for injury, pain, and swelling, Cardiovascular: Negative for chest pain, palpitations, and edema, Back: Negative for injury and pain, MS/Extremity: Negative for injury and deformity, Skin: Negative for injury, rash, and discoloration, Neuro: Negative for headache, weakness, numbness, tingling, and seizure. 14:33 Respiratory: Positive for cough, with clear sputum, Negative for shortness of breath, wheezing. 14:33 Abdomen/GI: Positive for abdominal pain, nausea and vomiting, constipation. Exam: 14:33 Eyes: Pupils equal round and reactive to light, extra-ocular motions intact. Lids and jr8 lashes normal. Conjunctiva and sclera are non-icteric and not injected. Cornea within normal limits. Periorbital areas with no swelling, redness, or edema. ENT: Nares patent. No nasal discharge, no septal abnormalities noted. Tympanic membranes are normal and external auditory canals are clear. Oropharynx with no redness, swelling, or masses, exudates, or evidence of obstruction, uvula midline. Mucous membranes moist. Neck: Trachea midline, no thyromegaly or masses palpated, and no cervical lymphadenopathy. Supple, full range of motion without nuchal rigidity, or vertebral point tenderness. No Meningismus. Cardiovascular: Regular rate and rhythm with a normal S1 and S2. No gallops, murmurs, or rubs. Normal PMI, no JVD. No pulse deficits. Respiratory: Lungs have equal breath sounds bilaterally, clear to auscultation and percussion. No rales, rhonchi or wheezes noted. No increased work of breathing, no retractions or nasal flaring. Back: No spinal tenderness. No costovertebral tenderness. Full range of motion. Skin: Warm, dry with normal turgor. Normal color with no rashes, no lesions, and no evidence of cellulitis. MS/ Extremity: Pulses equal, no cyanosis. Neurovascular intact. Full, normal range of motion. Neuro: Awake and alert, GCS 15, oriented to person, place, time, and situation. Cranial nerves II-XII grossly intact. Motor strength 5/5 in all extremities. Sensory grossly intact. Cerebellar exam normal. Normal gait. 14:33 Abdomen/GI: Inspection: distension, that is mild, Bowel sounds: active, all quadrants, Palpation: soft, in all quadrants, moderate abdominal tenderness, in the abdomen diffusely, mass, is not appreciated, rebound tenderness, is not appreciated, voluntary guarding, is not appreciated, involuntary guarding, is not appreciated, no appreciated organomegaly, Indicators: McBurney's point is not tender, Emerson's sign is negative, Rovsing's sign is negative, Liver: tenderness, is not appreciated. Vital Signs: 14:10 Pain 10/10; ll1 14:13 BP 117 / 83; Pulse 91; Resp 16; Temp 98.3(O); Pulse Ox 98% on R/A; dh3 15:30 BP 99 / 66; Pulse 78; Resp 16; Pulse Ox 97% on R/A; Pain 10/10; hb 15:42 BP 117 / 65; Pulse 76; Resp 18; Pulse Ox 97% on R/A; Pain 10/10; hb 17:00 BP 146 / 78; Pulse 82; Resp 18; Pulse Ox 97% ; Pain 9/10; hb 18:30 BP 138 / 72; Pulse 82; Resp 17; Pulse Ox 99% on R/A; hb 19:30 BP 142 / 76; Pulse 78; Resp 18; Pulse Ox 99% on R/A; MDM: 14:08 Patient medically screened. jr8 19:02 Data reviewed: vital signs, nurses notes, lab test result(s), radiologic studies, CT jr8 scan. Data interpreted: Pulse oximetry: on room air is 97 %. Interpretation: normal. Counseling: I had a detailed discussion with the patient and/or guardian regarding: the historical points, exam findings, and any diagnostic results supporting the discharge/admit diagnosis, lab results, radiology results, the need for outpatient follow up, a pediatric neuropsychologist, a painter tumbling barrel, to return to the emergency department if symptoms worsen or persist or if there are any questions or concerns that arise at home. Response to treatment: the patient's symptoms have mildly improved after treatment. ED course: The patient has had multiple bowel movements since the enema and states that she is feeling better. Discussed increasing both fluid intake and fiber consumption. Encouraged to take the prescribed Lactulose until she feels that she has emptied her bowel. Advised the patient to follow up with her pain management doctor. . 03/30 14:18 Order name: Basic Metabolic Panel; Complete Time: 15:18 jr8 10/28 14:18 Order name: CBC with Diff; Complete Time: 17:25 03/30 14:18 Order name: LFT's; Complete Time: 15:18 03/30 14:18 Order name: Magnesium; Complete Time: 15:18 03/30 14:18 Order name: NT PRO-BNP; Complete Time: 15:18 03/30 14:18 Order name: PT-INR; Complete Time: 15:18 03/30 14:18 Order name: XRAY Chest (1 view); Complete Time: 15:40 03/30 15:19 Order name: CT Abd/Pelvis - IV Contrast Only; Complete Time: 16:34 03/30 17:22 Order name: CBC Smear Scan; Complete Time: 17:25 EDMS 03/30 17:23 Order name: Manual Differential; Complete Time: 17:25 EDMS 03/30 14:18 Order name: EKG; Complete Time: 14:19 03/30 14:18 Order name: Cardiac monitoring; Complete Time: 14:35 03/30 14:18 Order name: EKG - Nurse/Tech; Complete Time: 14:35 03/30 14:18 Order name: IV Saline Lock; Complete Time: 14:35 03/30 14:18 Order name: Labs collected and sent; Complete Time: 14:35 03/30 14:18 Order name: O2 Per Protocol; Complete Time: 14:35 03/30 14:18 Order name: O2 Sat Monitoring; Complete Time: 14:35 Administered Medications: 14:35 Drug: Zofran (Ondansetron) 4 mg Route: IVP; Site: right antecubital; hb 15:09 Follow up: Response: No adverse reaction hb 14:35 Drug: fentaNYL (PF) 50 mcg Route: IVP; Site: right antecubital; hb 15:09 Follow up: Response: No adverse reaction hb 15:09 Drug: fentaNYL (PF) 50 mcg Route: IVP; Site: right antecubital; hb 15:30 Follow up: Response: No adverse reaction hb 15:29 Drug: Magnesium Sulfate 2 grams Route: IVPB; Infused Over: 2 hrs; Site: right hb antecubital; 19:29 Follow up: Response: No adverse reaction; IV Status: Completed infusion 15:29 Drug: NS 0.9% 500 ml Route: IV; Rate: bolus; Site: right antecubital; hb 16:10 Follow up: Response: No adverse reaction; IV Status: Completed infusion; IV Intake: hb 500ml 19:29 Follow up: Response: No adverse reaction; IV Status: Completed infusion 15:40 Drug: Dilaudid 1 mg Route: IVP; Site: right antecubital; hb 16:12 Follow up: Response: No adverse reaction hb 16:51 Drug: Magnesium Citrate Liquid 300 ml Route: PO; hb 19:29 Follow up: Response: No adverse reaction 17:06 Drug: Fleet Enema 133 ml Route: DC; hb 19:29 Follow up: Response: No adverse reaction 17:37 Drug: Fleet Enema 133 ml Route: DC; hb 19:29 Follow up: Response: No adverse reaction Disposition: 18:14 Co-signature as Attending Physician, Cee Mcdonald MD. ma2 Disposition: 03/30/20 19:18 Discharged to Home. Impression: Constipation, Other chronic pain. - Condition is Stable. - Discharge Instructions: Chronic Pain, Constipation, Adult. - Prescriptions for Lactulose 10 gram/15 mL Oral Solution - take 20 milliliter by ORAL route 2 times per day for 2 days then 20 ml QD for next 3 days after that; 300 milliliter. - Medication Reconciliation Form, Thank You Letter, Antibiotic Education, Prescription Opioid Use form. - Follow up: Private Physician; When: 2 - 3 days; Reason: Recheck today's complaints, Continuance of care, Re-evaluation by your physician. - Problem is new. - Symptoms have improved. Signatures: Dispatcher [employer] EDMS Constantino Foster PA PA jr8 Nandini Angelo RN RN ErikasharitaKatty Cee Mcdonald MD MD ma2 Estefania Rodríguez RN RN ll1 Corrections: (The following items were deleted from the chart) 16:46 16:34 The patient presents to the ED c/o constipation. The patient states she has not jr8 had a bowel movement in 5 weeks. Currently complains of sharp, cramping, generalized abdominal pain. She is currently getting chemo, and her last treatment was Saturday. Reports a history of lung cancer, with mets to the spine and abdomen. Denies trying laxatives at home. . jr8 19:32 19:18 03/30/2020 19:18 Discharged to Home. Impression: Constipation; Other chronic wh pain. Condition is Stable. Forms are Medication Reconciliation Form, Thank You Letter, Antibiotic Education, Prescription Opioid Use. Follow up: Private Physician; When: 2 - 3 days; Reason: Recheck today's complaints, Continuance of care, Re-evaluation by your physician. Problem is new. Symptoms have improved. jr8
--- NOTE | 2020-03-30 19:19 | ER ---
Nurse's Notes [facility] Name: Tori Rodríguez Age: 64 yrs Sex: Female : 1955 Arrival Date: 03/30/2020 Time: 14:03 Bed 20 Private MD: Diagnosis: Constipation;Other chronic pain Presentation: 03/30 14:10 Chief complaint: Patient states: States she hasn't had a good BM in 5 weeks. + N/V now. ll1 Sent [address] Hamilton for further eval. Coronavirus screen: Client denies travel out of the [place] in the last 14 days. At this time, the client does not indicate any symptoms associated with coronavirus-19. Ebola Screen: Patient denies travel to an Ebola-affected area in the 21 days before illness onset. Initial Sepsis Screen: Does the patient meet any 2 criteria? No. Patient's initial sepsis screen is negative. Does the patient have a suspected source of infection? Yes: Acute abdominal pain. Risk Assessment: Do you want to hurt yourself or someone else? Patient reports no desire to harm self or others. Onset of symptoms was February 22, 2020. 14:10 Method Of Arrival: Wheelchair ll1 14:10 Acuity: BRI 3 ll1 Historical: - Allergies: 14:12 No Known Allergies; ll1 - Home Meds: 14:38 Abilify 2 mg Oral tab nightly [Active]; ascorbic acid (vitamin C) 1,000 mg tab daily hb [Active]; bisacodyl 5 mg Oral TbEC 2 tabs once daily [Active]; buspirone 15 mg Oral tab 1 tab 2 times per day [Active]; carvedilol 12.5 mg Oral tab 1 tab 2 times per day [Active]; docusate sodium 100 mg Oral tab 3 tabs once daily [Active]; duloxetine 60 mg Oral cpDR 1 cap once daily [Active]; ferrous sulfate 325 mg (65 mg iron) Oral tab twice a day [Active]; gabapentin 600 mg Oral tab daily [Active]; trazodone 150 mg Oral tab nightly [Active]; Ventolin HFA inhalation Nebulizer [Active]; zolpidem 10 mg Oral tab 1 tab once daily [Active]; - PMHx: 14:12 BOWEL PERFORATION; Diverticulitis; Lung Cancer; with mets; ll1 - PSHx: 14:12 Appendectomy; Tonsillectomy; Carpal Tunnel Repair; ll1 - Immunization history:: Flu vaccine is up to date. - Social history:: Smoking status: Patient denies any tobacco usage or history of. Screenin:36 Abuse screen: Denies threats or abuse. Denies injuries from another. Nutritional hb screening: No deficits noted. Tuberculosis screening: No symptoms or risk factors identified. Fall Risk Total Brock Fall Scale indicates Low Risk Score (25-44 pts). Fall prevention measures have been instituted. Side Rails Up X 2 Frequent Obs/Assesments occuring Family Present and informed to notify staff if they need to leave bedside As available Patient and Family Educated on Fall Prevention Program and strategies. Assessment: 14:20 General: Appears uncomfortable, ill, Behavior is cooperative, anxious, moaning. Pain: hb Pain currently is 10 out of 10 on a pain scale. Neuro: Level of Consciousness is awake, alert, obeys commands, Oriented to person, place, time, situation. Cardiovascular: Capillary refill < 3 seconds Patient's skin is warm and dry. Respiratory: Respiratory effort is even, unlabored, Respiratory pattern is regular, symmetrical. GI: Reports lower abdominal pain, upper abdominal pain, diarrhea, nausea, vomiting. : No signs and/or symptoms were reported regarding the genitourinary system. EENT: No signs and/or symptoms were reported regarding the EENT system. Derm: Skin is pink, warm \T\ dry. Musculoskeletal: No signs and/or symptoms reported regarding the musculoskeletal system. 15:07 Reassessment: Pt c/o pain in abdomen and back, unchanged from previous medication. NEEMA Meeks notified, repeat fentanyl administered as ordered. 15:41 Reassessment: Pt c/o pain 10/10, moaning, NEEMA Meeks notified, Dilaudid administered as hb ordered. Pt to CT via stretcher. Family remains at bedside. 16:06 Reassessment: Pt returned from CT. NAD. Family at bedside. hb 16:55 Reassessment: Pt drank Mag Citrate, enema administered as ordered, pt in left side hb lying position. Family remains at bedside. 17:07 Reassessment: Pt up to bedside commode. hb 18:00 Reassessment: Patient appears in no apparent distress at this time. Patient and/or hb family updated on plan of care and expected duration. Pain level reassessed. Patient is alert, oriented x 3, equal unlabored respirations, skin warm/dry/pink. 19:00 Reassessment: Patient appears in no apparent distress at this time. Patient and/or hb family updated on plan of care and expected duration. Pain level reassessed. Patient is alert, oriented x 3, equal unlabored respirations, skin warm/dry/pink. 19:30 Reassessment: Patient appears in no apparent distress at this time. Patient and/or wh family updated on plan of care and expected duration. Pain level reassessed. Patient is alert, oriented x 3, equal unlabored respirations, skin warm/dry/pink. Vital Signs: 14:10 Pain 10/10; ll1 14:13 BP 117 / 83; Pulse 91; Resp 16; Temp 98.3(O); Pulse Ox 98% on R/A; dh3 15:30 BP 99 / 66; Pulse 78; Resp 16; Pulse Ox 97% on R/A; Pain 10/10; hb 15:42 BP 117 / 65; Pulse 76; Resp 18; Pulse Ox 97% on R/A; Pain 10/10; hb 17:00 BP 146 / 78; Pulse 82; Resp 18; Pulse Ox 97% ; Pain 9/10; hb 18:30 BP 138 / 72; Pulse 82; Resp 17; Pulse Ox 99% on R/A; hb 19:30 BP 142 / 76; Pulse 78; Resp 18; Pulse Ox 99% on R/A; ED Course: 14:03 Patient arrived in ED. ds1 14:06 Nandini Angelo, TAYLOR is Primary Nurse. hb 14:08 Constantino Foster PA is PHCP. jr8 14:08 Cee Mcdonald MD is Attending Physician. jr8 14:11 Triage completed. ll1 14:11 Arm band placed on Patient placed in an exam room, on a stretcher. ll1 14:33 Inserted saline lock: 22 gauge in right antecubital area, using aseptic technique. hb Blood collected. 14:36 Patient has correct armband on for positive identification. Bed in low position. Call hb light in reach. Side rails up X2. 14:36 EKG done, by ED staff, reviewed by Constantino BETHEA. dh3 15:00 XRAY Chest (1 view) In Process Unspecified. EDMS 15:53 CT Abd/Pelvis - IV Contrast Only In Process Unspecified. EDMS 19:30 No provider procedures requiring assistance completed. IV discontinued, intact, wh bleeding controlled, No redness/swelling at site. Administered Medications: 14:35 Drug: Zofran (Ondansetron) 4 mg Route: IVP; Site: right antecubital; hb 15:09 Follow up: Response: No adverse reaction hb 14:35 Drug: fentaNYL (PF) 50 mcg Route: IVP; Site: right antecubital; hb 15:09 Follow up: Response: No adverse reaction hb 15:09 Drug: fentaNYL (PF) 50 mcg Route: IVP; Site: right antecubital; hb 15:30 Follow up: Response: No adverse reaction hb 15:29 Drug: Magnesium Sulfate 2 grams Route: IVPB; Infused Over: 2 hrs; Site: right hb antecubital; 19:29 Follow up: Response: No adverse reaction; IV Status: Completed infusion 15:29 Drug: NS 0.9% 500 ml Route: IV; Rate: bolus; Site: right antecubital; hb 16:10 Follow up: Response: No adverse reaction; IV Status: Completed infusion; IV Intake: hb 500ml 19:29 Follow up: Response: No adverse reaction; IV Status: Completed infusion 15:40 Drug: Dilaudid 1 mg Route: IVP; Site: right antecubital; hb 16:12 Follow up: Response: No adverse reaction hb 16:51 Drug: Magnesium Citrate Liquid 300 ml Route: PO; hb 19:29 Follow up: Response: No adverse reaction 17:06 Drug: Fleet Enema 133 ml Route: DC; hb 19:29 Follow up: Response: No adverse reaction 17:37 Drug: Fleet Enema 133 ml Route: DC; hb 19:29 Follow up: Response: No adverse reaction Intake: 16:10 IV: 500ml; Total: 500ml. hb Outcome: 19:18 Discharge ordered by jrClarisse 19:31 Discharged to home via wheelchair, with family. 19:31 Condition: stable 19:31 Discharge instructions given to patient, family, Instructed on discharge instructions, follow up and referral plans. medication usage, POC Demonstrated understanding of instructions, follow-up care, medications, POC Prescriptions given X 1. 19:32 Patient left the ED. Signatures: Dispatcher [employer] EDIL Margareth Trivedi ds1 Constantino Foster PA PA jr8 Nandini Angelo, RN RN Arelis Holman 3 Katty Abel Lynsay, RN RN ll1
[2020-03-30 20:25] VITALS: TEMP 98.3
[2020-03-30 20:32] VITALS: O2SAT 99
[2020-03-30 20:33] VITALS: BP 142/76
== END 2020-03-30 19:32 | disposition home or self-care (01) ==
LOC: ER 14:01
DX: K59.00 Constipation, unspecified (principal); G89.29 Other chronic pain; C34.90 Malignant neoplasm of unspecified part of unspecified bronchus or lung
CPT/HCPCS: 85025; 80048; 36415; 83735; 85610; 80076; 83880; 74177; 71045; Q9967; J3010 ×2; J3475; J1170; J7040; J2405; 93005

== ENCOUNTER 2020-04-26 07:12 | Day surgery (SDC) | payer OTHER, SELFPAY ==
[2020-04-25 13:33] LABS: Absolute Lymphocytes (CBC) 0.5 K/uL (0.7-4.9); Basophils % 0.2 % (0-1.3); Hematocrit 18.3 % (36.0-45.0); Lymphocytes % 14.7 % (15.3-44.8); MPV 9.3 fL (7.6-11.3); RBC Red Blood Cell Count 1.76 M/uL (3.86-4.86)
[2020-04-25 15:36] LABS: Anisocytosis 2+; Blood Morphology Comment NOTED (NOT SEEN); Platelet Estimate DECR; Poikilocytosis 2+; White Blood Cell Scan OK (OK)
--- OUTSIDE RECORDS SUMMARY | 2020-04-26 07:15 | XMS REPORT | Continuity of Care Document ---
:1955 Author Organization [facility] t Address [address] [place] [address] Care Team Providers Name Role Phone Theo Baker MD Primary Care Physician Doctor Unassigned, Name Attending Clinician Unavailable Moise SALAZAR, L Attending Clinician Earnestine YUSUF [...] Date Quantity Comments Source Sex Assigned At [facility] Medications Ordered Filled Start Stop Current Ordering [...] Source BP Systolic 2017-09-09 77 mm[Hg] Location: [facility] 08:55:00 [place] Physician s BP Diastolic 2017-09-09 51 mm[Hg] Location: RUE; [facility] 08:55:00 [place] Physician s Height 2017-09-09 63 [in_us] [facility] 08:55:00 [place] Physician s Weight 2017-09-09 178 [lb_av] [facility] 08:55:00 [place] Physician s Body Mass Index 2017-09-09 31.53 kg/m2 University o f Calculated 08:55:00 [place] Physician s Heart Rate 2017-09-09 51 /min Location: R [facility] 08:55:00 Brachial [place] Physician s Artery; Procedures Procedure Date / Time Performed Performing Clinician Jason makenna Carotid artery 2017-09-09 00:00:00 [facility] bilateral Duplex Physicians [id number] Plan of Care Planned Activity Planned Date Details Comments Source Future Scheduled 2020-02-[address] [facility] - Test 00:00:00 (#1) [code = [facility] INFLUENZA VACCINE (#1)] Future Scheduled [address] [facility] - Test 00:00:00 (procedure) [code = [facility] 86394570] Future Scheduled [address] [facility] Test 00:00:00 malignant neoplasm Medical C enter of cervix (procedure) [code = 421941558] Future Scheduled [address] [facility] - Test 00:00:00 malignant neoplasm Medical C enter of breast (procedure) [code = 020612115] Future Scheduled [address] [facility] - Test 00:00:00 malignant neoplasm Medical C enter of colon (procedure) [code = 299628559] Encounters Start End Encounter Admission Attending Care Care Encounter Source Date/Time Date/Time Type Type Clinicians Facility Department ID 2020-04-11 2020-04-11 Orders Doctor CHRISTIANSON [id number] 20 00:00:00 00:00:00 Only Unassigned, CHRISTOPHER [id number] [facility] 4.2.7.2.686 [id number] [id number] 2020-03-17 2020-03-17 Telephone SEBASTIAN Phipps [id number] 00:00:00 00:00:00 [facility] [id number] Surgical 4.2.7.2.686 Specialti [id number] es [address] [place] 2020-03-08 2020-03-15 Office Earnestine MIEULA [id number] 15 13:28:06 15:05:11 Visit [facility] [id number] Surgical 4.2.7.2.686 Specialti [id number] es [address] [place] 2020-03-03 2020-03-03 Orders Doctor SAMMY [id number] 00:00:00 00:00:00 Only Unassigned, CHRISTOPHER [id number] [facility] 4.2.7.2.686 [id number] 009 2017-12-10 2017-12-10 Appointmen EMMANUEL GONZALES [facility]TP [id number] Univers 11:30:00 11:30:00 t; HALIMA GONZALES, BIOTECHNOLOGIST ity of [place], [place] BIOTECHNOLOGIST Physici ans 2017-09-09 2017-09-09 Appointmen EMMANUEL GONZALES Neurology [id number] Univers 09:30:00 09:30:00 t; HALIMA GONZALES, BIOTECHNOLOGIST ity of [place], [place] BIOTECHNOLOGIST Physici ans Results Test Description Test Time Test Comments Results Result Sour e Comments CT, CHEST, 2018-11-01 NEED 0.625mm CUTS FOR FINAL REPORT PATIENT WITHOUT IV 7 FUSION Moreno ID: [id number] EXAM: CONTRAST 11:11:[address] Chest, high PROTOCOLComments resolution, WITHOUT NEED 0.625mm CUTS FOR contrastINDICATION: FUSION Moreno lung mass ONLYNAV BRONCH COMPARISON: CT chest PROTOCOL from [facility] 08/12/2018. TECHNIQUE:Chest was scanned utilizing a multidetector [...] workstation for fusion software used by the electrician underground. IV CONTRAST: None COMPLICATIONS: None RADIATION DOSE: [...] left upper lobe nodule. Signed: Glen Gould MDReport Verified Date/Time: 11/17/2018 11:11:42 Reading Location: [facility] Reading Room [address] [place] [address]
--- OUTSIDE RECORDS SUMMARY | 2020-04-26 07:15 | XMS REPORT | Clinical Summary ---
:1955 Author Organization [facility] Address [address] [place] [address] Care Team Providers Name Role Phone Theo [...] (#1) 2020 06/14/2017 Results Not on fileafter 04/26/2019
[2020-04-26] MEDS ORDERED: NA CHLORIDE 0.9% 250 ML ONE (08:14)
[2020-04-26] MEDS ORDERED: NA CHLORIDE 0.9% 500 ML ONE (10:59)
[2020-04-26 14:17] VITALS: BMI 21.2
[2020-04-26] MEDS ORDERED: NA CHLORIDE 0.9% 50 ML ONE (14:17)
[2020-04-26 15:21] LABS: Absolute Lymphocytes (CBC) 1.6 K/uL (0.7-4.9); Basophils % 0.4 % (0-1.3); Lymphocytes % 25.9 % (15.3-44.8); MPV 8.2 fL (7.6-11.3); RBC Red Blood Cell Count 2.47 M/uL (3.86-4.86)
[2020-04-26 15:29] VITALS: BP 132/80; TEMP 97.9; O2SAT 99
[2020-04-26 15:43] LABS: Anisocytosis 1+; Blood Morphology Comment NOTED (NOT SEEN); Platelet Estimate DECR; White Blood Cell Scan OK (OK)
== END 2020-04-26 15:13 | disposition home or self-care (01) ==
LOC: DS 07:12
PROVIDERS: ATTEND Internal Medicine Hematology & Oncology
DX: D64.81 Anemia due to antineoplastic chemotherapy (principal); D69.6 Thrombocytopenia, unspecified; C34.90 Malignant neoplasm of unspecified part of unspecified bronchus or lung
CPT/HCPCS: 85025 ×2; 36415 ×2; 86900; 86850; 86901; 36430; P9035; P9016 ×2; J7050; J7040; 96372; Q5105

== ENCOUNTER → 2020-05-20 | Day surgery (SDC) | payer OTHER, SELFPAY ==
[2020-05-19 15:34] LABS: Absolute Lymphocytes (CBC) 1.4 K/uL (0.7-4.9); Basophils % 0.1 % (0-1.3); Lymphocytes % 3.3 % (15.3-44.8); MPV 8.9 fL (7.6-11.3); RBC Red Blood Cell Count 2.21 M/uL (3.86-4.86)
[2020-05-19 16:23] LABS: Blood Morphology Comment NOT SEEN (NOT SEEN); Platelet Estimate DECR
[~2020-05-20] MED LIST: CEFAZOLIN/SWI 1gm 0 GM/0 ML SYR ONE; HEPARIN 5000 UNIT/ML 1 ML VIAL ONE; HYDROCODONE/APAP 7.5/325 MG TAB ONE; KCL 20 MEQ/100 mL IVPB 20 MEQ/100 ML BAG IV ONE; LIDOCAINE 1% MPF 30 ML VIAL ONE; NS 0.9% VIAL 20 ML ONE; POTASSIUM CL SA 10 MEQ TAB PO ONE; Ringers Lactate 1,000 ML IV ONE
--- OUTSIDE RECORDS SUMMARY | 2020-05-20 08:57 | XMS REPORT | Continuity of Care Document ---
:1955 Author Organization [facility] t Address [address] [place] [address] Care Team Providers Name Role Phone Samuel SALAZAR, Theo Primary Care Physician Unavailable Earnestine YUSUF S Attending Clinician Doctor Unassigned, Name Attending Clinician Unavailable Moise SALAZAR, L Attending Clinician JANET Attending Clinician Unavailable Problems [...] Date Quantity Comments Source Sex Assigned At [facility] Medications Ordered Filled Start Stop [...] Source BP Systolic 2017-09-09 77 mm[Hg] Location: [facility] 08:55:00 [place] Physician s BP Diastolic 2017-09-09 51 mm[Hg] Location: RUE; [facility] 08:55:00 [place] Physician s Height 2017-09-09 63 [in_us] [facility] 08:55:00 [place] Physician s Weight 2017-09-09 178 [lb_av] [facility] 08:55:00 [place] Physician s Body Mass Index 2017-09-09 31.53 kg/m2 University o f Calculated 08:55:00 [place] Physician s Heart Rate 2017-09-09 51 /min Location: R [facility] 08:55:00 Brachial [place] Physician s Artery; Procedures Procedure Date / Time Performed Performing Clinician Jason makenna Carotid artery 2017-09-09 00:00:00 [facility] bilateral Duplex Physicians [id number] Plan of Care Planned Activity Planned Date Details Comments Source Future Scheduled 2020-02-[address] [facility] - Test 00:00:00 (#1) [code = [facility] INFLUENZA VACCINE (#1)] Future Scheduled [address] [facility] - Test 00:00:00 (procedure) [code = [facility] 33991438] Future Scheduled [address] [facility] - Test 00:00:00 malignant neoplasm Medical C enter of cervix (procedure) [code = 148993359] Future Scheduled [address] [facility] - Test 00:00:00 malignant neoplasm Medical C enter of breast (procedure) [code = 795182075] Future Scheduled [address] [facility] - Test 00:00:00 malignant neoplasm Medical C enter of colon (procedure) [code = 044952435] Encounters Start End Encounter Admission Attending Care Care Encounter Source Date/Time Date/Time Type Type Clinicians Facility Department ID 2020-04-27 2020-04-27 [facility] [id number] 09:29:45 23:59:00 Encounter Federico Grissom [id number] [place] 4.2.7.2.686 [place] [id number] [id number] 2020-04-24 2020-04-24 Orders Doctor CHRISTIANSON 1.2.840.114 [id number] 00:00:00 00:00:00 Only Unassigned, CHRISTOPHER [id number] [place] [facility] 4.2.7.2.686 [id number] [id number] 2020-04-11 2020-04-11 Orders Doctor SAMMY 1.2.840.114 [id number] 20 00:00:00 00:00:00 Only Unassigned, CHRISTOPHER 350.1.13.10 [place] [facility] 4.2.7.2.686 [id number] [id number] 2020-03-17 2020-03-17 Telephone Moise [facility] 1.2.840.114 [id number] 00:00:00 00:00:00 [facility] [id number] Surgical 4.2.7.2.686 Specialti [id number] es [address] [place] 2020-03-08 2020-03-15 Office Earnestine [facility] 1.2.840.114 [id number] 15 13:28:06 15:05:11 Visit Federico [facility] [id number] Surgical 4.2.7.2.686 Specialti [id number] es [address] [place] 2020-03-03 2020-03-03 Orders Doctor SAMMY 1.2.840.114 [id number] 00:00:00 00:00:00 Only Unassigned, CHRISTOPHER 350.1.13.10 [place] [facility] 4.2.7.2.686 [id number] [id number] 2017-12-10 2017-12-10 Appointmen EMMANUEL GONZALES [facility] [id number] Univers 11:30:00 11:30:00 t; HALIMA GONZALES, MACHINE SETUP OPERATOR ity of [place], [place] MACHINE SETUP OPERATOR Physici ans 2017-09-09 2017-09-09 Appointmen EMMANUEL GONZALES Neurology [id number] Univers 09:30:00 09:30:00 t; HALIMA GONZALES, MACHINE SETUP OPERATOR ity of [place], [place] MACHINE SETUP OPERATOR Physici ans Results Test Description Test Time Test Comments Results Result Sour e Comments CT, CHEST, 2018-11-01 NEED 0.625mm CUTS FOR FINAL REPORT PATIENT WITHOUT IV 7 FUSION Moreno ID: [id number] EXAM: CONTRAST 11:11:[address] Chest, high PROTOCOLComments resolution, WITHOUT NEED 0.625mm CUTS FOR contrastINDICATION: FUSION Moreno lung mass ONLYNAV BRONCH COMPARISON: CT chest PROTOCOL from [facility] 08/12/2018. TECHNIQUE:Chest was scanned utilizing a multidetector [...] workstation for fusion software used by the independent video producer. IV CONTRAST: None COMPLICATIONS: None RADIATION DOSE: [...] Verified Date/Time: 11/17/2018 11:11:42 Reading Location: [facility] Reading Room [address] [place] [address]
--- OUTSIDE RECORDS SUMMARY | 2020-05-20 08:57 | XMS REPORT | Clinical Summary ---
:1955 Author Organization [facility] Address [address] [place] [address] Care Team Providers Name Role Phone Theo Baker MD Primary Care Provider Unavailable Allergies Not on File Medications Not on [...] (#1) 2020 06/14/2017 Results Not on fileafter 05/20/2019
[2020-05-20 09:44] VITALS: BP 124/67; TEMP 97.8; O2SAT 97
== END ==
LOC: OR 08:51
PROVIDERS: ATTEND Surgery
DX: C34.90 Malignant neoplasm of unspecified part of unspecified bronchus or lung (principal); Z20.828 Contact with and (suspected) exposure to other viral communicable diseases; Z53.8 Procedure and treatment not carried out for other reasons
CPT/HCPCS: 85025; 36415 ×2; 84132; U0002; J1644 ×2; J7120; J0690; J3480

== ENCOUNTER 2020-05-23 07:19 | Day surgery (SDC) | payer OTHER, SELFPAY ==
--- OUTSIDE RECORDS SUMMARY | 2020-05-23 07:27 | XMS REPORT | Clinical Summary ---
:[address] [facility] Address [address] [place] [address] Care Team Providers Name Role Phone Theo [...] (#1) 2020 06/14/2017 Results Not on fileafter 05/23/2019
--- OUTSIDE RECORDS SUMMARY | 2020-05-23 07:27 | XMS REPORT | Continuity of Care Document ---
:1955 Author Organization [facility] t Address [address] [place] [address] Care Team Providers Name Role Phone Samuel [...] Date Quantity Comments Source Sex Assigned At [facility] Medications Ordered Filled Start Stop Current Ordering [...] Systolic 2017-09-09 77 mm[Hg] Location: [facility] 08:55:00 [place] Physician s BP Diastolic 2017-09-09 51 mm[Hg] Location: RUE; [facility] 08:55:00 [place] Physician s Height 2017-09-09 63 [in_us] [facility] 08:55:00 [place] Physician s Weight 2017-09-09 178 [lb_av] [facility] 08:55:00 [place] Physician s Body Mass Index 2017-09-09 31.53 kg/m2 University o f Calculated 08:55:00 [place] Physician s Heart Rate 2017-09-09 51 /min Location: R [facility] 08:55:00 Brachial [place] Physician s Artery; Procedures Procedure Date / Time Performed Performing Clinician Jason makenna Carotid artery 2017-09-09 00:00:00 [facility] bilateral Duplex Physicians [id number] Plan of Care Planned Activity Planned Date Details Comments Source Future Scheduled 2020-02-[address] [facility] - Test 00:00:00 (#1) [code = [facility] INFLUENZA VACCINE (#1)] Future Scheduled [address] [facility] - Test 00:00:00 (procedure) [code = [facility] 17904321] Future Scheduled [address] [facility] Test 00:00:00 malignant neoplasm Medical C enter of cervix (procedure) [code = 731103243] Future Scheduled [address] [facility] - Test 00:00:00 malignant neoplasm Medical C enter of breast (procedure) [code = 486205958] Future Scheduled [address] [facility] - Test 00:00:00 malignant neoplasm Medical C enter of colon (procedure) [code = 052434442] Encounters Start End Encounter Admission Attending Care Care Encounter Source Date/Time Date/Time Type Type Clinicians Facility Department ID 2020-04-27 2020-04-27 [facility] 1.2.840.114 [id number] 09:29:45 23:59:00 Encounter Federico Grissom 350.1.13.10 [place] 4.2.7.2.686 [place] [id number] 2020-04-24 2020-04-24 Orders Doctor CHRISTIANSON 1.2.840.114 [id number] 00:00:00 00:00:00 Only Unassigned, CHRISTOPHER 350.1.13.10 [place] [facility] 4.2.7.2.686 [id number] [id number] 2020-04-11 2020-04-11 Orders Doctor SAMMY 1.2.840.114 [id number] 00:00:00 00:00:00 Only Unassigned, CHRISTOPHER 350.1.13.10 [place] [facility] 4.2.7.2.686 [id number] [id number] 2020-03-17 2020-03-17 Telephone Moise [facility] 1.2.840.114 [id number] 00:00:00 00:00:00 [facility] 350.1.13.10 Surgical 4.2.7.2.686 Specialti [id number] es [address] [place] 2020-03-08 2020-03-15 Office Earnestine [facility] 1.2.840.114 [id number] 15 13:28:06 15:05:11 Visit Federico [facility] [id number] Surgical 4.2.7.2.686 Specialti [id number] es [address] [place] 2020-03-03 2020-03-03 Orders Doctor SAMMY 1.2.840.114 [id number] 00:00:00 00:00:00 Only Unassigned, CHRISTOPHER 350.1.13.10 [place] [facility] 4.2.7.2.686 [id number] [id number] 2017-12-10 2017-12-10 Appointmen EMMANUEL GONZALES [facility] [id number] Univers 11:30:00 11:30:00 t; HALIMA GONZALES, MILLING OPERATOR ity of [place], [place] MILLING OPERATOR Physici ans 2017-09-09 2017-09-09 Appointmen EMMANUEL GONZALES Neurology [id number] Univers 09:30:00 09:30:00 t; HALIMA GONZALES, MILLING OPERATOR ity of [place], [place] MILLING OPERATOR Physici ans Results Test Description Test Time Test Comments Results Result Sour e Comments CT, CHEST, 2018-11-01 NEED 0.625mm CUTS FOR FINAL REPORT PATIENT WITHOUT IV 7 FUSION Moreno ID: [id number] EXAM: CONTRAST 11:11:[address] Chest, high PROTOCOLComments resolution, WITHOUT NEED 0.625mm CUTS FOR contrastINDICATION: FUSION Moreno lung mass ONLYNAV BRONCH COMPARISON: CT chest PROTOCOL from [facility] 08/12/2018. TECHNIQUE:Chest was scanned utilizing a multidetector [...] workstation for fusion software used by the cosmetic counselor. IV CONTRAST: None COMPLICATIONS: None RADIATION DOSE: [...] Verified Date/Time: 11/17/2018 11:11:42 Reading Location: [facility] Reading Room [address] [place] [address]
[2020-05-23] MEDS ORDERED: CEFAZOLIN/SWI 1gm 1 GM/10 ML SYR ONE (08:15)
[2020-05-23] MEDS ORDERED: HYDROCODONE/APAP 7.5/325 MG TAB PO ONE (08:15)
[2020-05-23] MEDS ORDERED: propofoL 200 MG/20 ML VIAL IV ONE (08:24)
[2020-05-23] MEDS ORDERED: LIDOCAINE 1% MPF 5 ML VIAL ONE (08:24)
[2020-05-23] MEDS ORDERED: FENTANYL CITR 100 MCG/2 ML ONE (08:24)
[2020-05-23] MEDS ORDERED: NS 0.9% VIAL 20 ML ONE (08:24)
[2020-05-23] MEDS ORDERED: HEPARIN 5000 UNIT/ML 1 ML VIAL ONE (08:25)
[2020-05-23] MEDS ORDERED: MIDAZOLAM HCL 2 MG/2 ML INJ ONE (08:25)
[2020-05-23] MEDS ORDERED: LIDOCAINE 1% 20 ML MDV ONE (08:26)
[2020-05-23] MEDS: Ringers Lactate 1,000 ML IV ONE ×2 (08:35→08:45)
[2020-05-23] MEDS ORDERED: LIDOCAINE 1% MPF 30 ML VIAL ONE (08:53)
[2020-05-23] MEDS ORDERED: KETOROLAC 30 MG/ML INJ ONE (09:13)
--- NOTE | 2020-05-23 09:44 | RAD REPORT ---
EXAM DESCRIPTION: RAD - Fluoroscopy <1 Hour - 05/23/2020 9:36 am CLINICAL HISTORY: Device placement central venous catheter placement FINDINGS: A central venous catheter was placed into the superior vena cava. Three fluoroscopic spot images are submitted. The examination was performed by Dr. Jinny broussard. Fluoroscopy time 23 seconds
[2020-05-23] MEDS ORDERED: Mastisol Adhesive Liq ONE (09:48)
--- NOTE | 2020-05-23 10:27 | RAD REPORT ---
EXAM DESCRIPTION: Darrellt Single View05/23/2020 10:10 am CLINICAL HISTORY: Device placement/central venous catheter placement IMPRESSION: Central venous catheter with its tip in the superior vena cava No pneumothorax
--- NOTE | 2020-05-23 10:34 | OP ---
Date of Procedure: 05/23/2020 Surgeon: Geovanny Stearns MD Consolidator: None. Preoperative Diagnosis: Lung cancer. Postoperative Diagnosis: Lung cancer. Procedures Performed: Placement of right IJ Port-A-Cath and interpretation of intraoperative fluoros copy. Specimen: None. Findings: Normal anatomy. Anesthesia: MAC. Complications: None. Disposition: The patient tolerated the procedure in stable condition, taken to Recovery in good gene ral condition. Description Of Procedure: The patient was brought to the OR and placed in supine position. MAC anes thesia was begun. The patient was prepped and draped in normal sterile fashion. Lidocaine 1% was in filtrated locally and then, an 18-gauge needle was used to access the right IJ vein. Guidewire was p assed. Position was confirmed with fluoroscopy. A 3 cm pocket was created in the right anterior antonio st. Tunneling device was used to tunnel the catheter between the 2 wounds. Seldinger technique was used. Tip of the catheter was placed in the SVC under fluoroscopy and cut to appropriate size and at tached to the Port-A-Cath device. Port-A-Cath device was attached to the subcutaneous tissue with 3- 0 Vicryl and then flushed with heparin and packed with heparin with good blood flow. and then 3-0 chr omic was used to approximate the subcutaneous tissue and close the skin. Sterile dressing was applie d. The patient was awakened and taken to Recovery in good general condition. Discharge Note: The patient will go to Day Surgery and home when stable. Disposition: Home. Condition: Stable. Discharge Instructions: Resume home meds and diet. Activity as tolerated. No heavy lifting. Remov e outer dressing in 2 days. Shower. Keep wound clean and dry. Followup in my office in 2 weeks. C all for appointment and follow up at the Cancer Center. Tylenol No.3 one tablet q.4 p.r.n. pain. A chest x-ray will be done in the recovery room prior to discharge. MELINA/LUIS ANTONIO Voice ID: [id number] Report ID: [id number]
[2020-05-23 13:24] VITALS: BP 144/72; TEMP 98; O2SAT 99
== END 2020-05-23 11:15 | disposition home or self-care (01) ==
LOC: OR 07:19
PROVIDERS: ATTEND Surgery
PROC: 02HV33Z Insertion of Infusion Device into Superior Vena Cava, Percutaneous Approach (ICD-10-PCS; 2020-05-23)
PROC: 0JH63WZ Insertion of Totally Implantable Vascular Access Device into Chest Subcutaneous Tissue and Fascia, Percutaneous Approach (ICD-10-PCS; principal; 2020-05-23 08:30)
DX: C34.90 Malignant neoplasm of unspecified part of unspecified bronchus or lung (principal); F17.210 Nicotine dependence, cigarettes, uncomplicated; I10 Essential (primary) hypertension; F32.9 Major depressive disorder, single episode, unspecified; Z86.73 Personal history of transient ischemic attack (TIA), and cerebral infarction without residual deficits; Z20.828 Contact with and (suspected) exposure to other viral communicable diseases
CPT/HCPCS: 36415; 84132; 71045; 36571; J2704; J1644 ×2; J2250; J3010; J0690; J7120; C1788; 76000

== ENCOUNTER 2020-06-24 08:07 | Day surgery (SDC) | payer OTHER, SELFPAY ==
[2020-06-24] MEDS ORDERED: NA CHLORIDE 0.9% 500 ML ONE (09:17)
[2020-06-24] MEDS ORDERED: HYDROCODONE/APAP 5/325 MG TAB ONE (10:11)
--- OUTSIDE RECORDS SUMMARY | 2020-06-24 10:36 | XMS REPORT | Clinical Summary ---
:1955 Author Organization [facility] Address [address] [place] [address] Care Team Providers Name Role Phone Theo [...] (#1) 2020 06/14/2017 Results Not on fileafter 06/24/2019
--- OUTSIDE RECORDS SUMMARY | 2020-06-24 10:36 | XMS REPORT | Continuity of Care Document ---
:[address] [facility] t Address [address] [place] [address] Care Team Providers Name Role Phone Samuel [...] Date Quantity Comments Source Sex Assigned At [facility] Medications Ordered Filled Start Stop Current Ordering [...] Source BP Systolic 2017-09-09 77 mm[Hg] Location: [facility] 08:55:00 [place] Physician s BP Diastolic 2017-09-09 51 mm[Hg] Location: RUE; [facility] 08:55:00 [place] Physician s Height 2017-09-09 63 [in_us] [facility] 08:55:00 [place] Physician s Weight 2017-09-09 178 [lb_av] [facility] 08:55:00 [place] Physician s Body Mass Index 2017-09-09 31.53 kg/m2 University o f Calculated 08:55:00 [place] Physician s Heart Rate 2017-09-09 51 /min Location: R [facility] 08:55:00 Brachial [place] Physician s Artery; Procedures Procedure Date / Time Performed Performing Clinician Jason makenna Carotid artery 2017-09-09 00:00:00 [facility] bilateral Duplex Physicians [id number] Plan of Care Planned Activity Planned Date Details Comments Source Future Scheduled 2020-02-[address] [facility] - Test 00:00:00 (#1) [code = [facility] INFLUENZA VACCINE (#1)] Future Scheduled [address] [facility] - Test 00:00:00 (procedure) [code = [facility] 07436991] Future Scheduled [address] [facility] Test 00:00:00 malignant neoplasm Medical C enter of cervix (procedure) [code = 852168014] Future Scheduled [address] [facility] - Test 00:00:00 malignant neoplasm Medical C enter of breast (procedure) [code = 799616114] Future Scheduled [address] [facility] Test 00:00:00 malignant neoplasm Medical C enter of colon (procedure) [code = 738174199] Encounters Start End Encounter Admission Attending Care Care Encounter Source Date/Time Date/Time Type Type Clinicians Facility Department ID 2020-04-27 2020-04-27 [facility] 1.2.840.114 [id number] 09:29:45 23:59:00 Encounter Federico Grissom 350.1.13.10 [place] 4.2.7.2.686 [place] [id number] 2020-04-24 2020-04-24 Orders Doctor CHRISTIANSON 1.2.840.114 [id number] 00:00:00 00:00:00 Only Unassigned, CHRISTOPHER 350.1.13.10 [place] [facility] 4.2.7.2.686 [id number] [id number] 2020-04-11 2020-04-11 Orders Doctor SAMMY 1.2.840.114 [id number] 00:00:00 00:00:00 Only Unassigned, CHRISTOPHER 350.1.13.10 [place] [facility] 4.2.7.2.686 [id number] [id number] 2020-03-17 2020-03-17 Telephone Moise [facility] 1.2.840.114 [id number] 00:00:00 00:00:[address] [facility] 350.1.13.10 Surgical 4.2.7.2.686 Specialti [id number] es [address] [place] 2020-03-08 2020-03-15 Office Earnestine [facility] 1.2.840.114 [id number] 15 13:28:06 15:05:11 Visit Federico [facility] 350.1.13.10 Surgical 4.2.7.2.686 Specialti [id number] es [address] [place] 2020-03-03 2020-03-03 Orders Doctor SAMMY 1.2.840.114 [id number] 00:00:00 00:00:00 Only Unassigned, CHRISTOPHER 350.1.13.10 [place] [facility] 4.2.7.2.686 [id number] [id number] 2017-12-10 2017-12-10 Appointmen EMMANUEL GONZALES UTP [id number] Univers 11:30:00 11:30:00 t; HALIMA GONZALES, SOUND SYSTEM INSTALLER ity of [place], [place] SOUND SYSTEM INSTALLER Physici ans 2017-09-09 2017-09-09 Appointmen EMMANUEL GONZALES Neurology [id number] Univers 09:30:00 09:30:00 t; HALIMA GONZALES, SOUND SYSTEM INSTALLER ity of [place], [place] SOUND SYSTEM INSTALLER Physici ans Results Test Description Test Time Test Comments Results Result Sour e Comments CT, CHEST, 2018-11-01 NEED 0.625mm CUTS FOR FINAL REPORT PATIENT WITHOUT IV 7 FUSION Moreno ID: [id number] EXAM: CONTRAST 11:11:[address] Chest, high PROTOCOLComments resolution, WITHOUT NEED 0.625mm CUTS FOR contrastINDICATION: FUSION Moreno lung mass ONLYNAV BRONCH COMPARISON: CT chest PROTOCOL from [facility] 08/12/2018. TECHNIQUE:Chest was scanned utilizing a [...] workstation for fusion software used by the digital design engineer. IV CONTRAST: None COMPLICATIONS: None RADIATION DOSE: [...] mm spiculated left upper lobe nodule. Signed: Glne Gould MDReport Verified Date/Time: 11/17/2018 11:11:42 Reading Location: [facility] Reading Room [address] [place] [address]
[2020-06-24 12:36] VITALS: BMI 19.8
[2020-06-24] MEDS ORDERED: HEPARIN 500 UNIT/5 ML SYR IV ONE (12:45)
[2020-06-24 13:22] LABS: Absolute Lymphocytes (CBC) 0.3 K/uL (0.7-4.9); Basophils % 0.1 % (0-1.3); Hematocrit 22.4 % (36.0-45.0); Lymphocytes % 7.5 % (15.3-44.8); MPV 9.2 fL (7.6-11.3); RBC Red Blood Cell Count 2.15 M/uL (3.86-4.86)
[2020-06-24 13:45] VITALS: BP 135/76; TEMP 97.3; O2SAT 98
== END 2020-06-24 13:05 | disposition home health service (06) ==
LOC: DS 08:07
PROVIDERS: ATTEND Internal Medicine Hematology & Oncology
DX: D64.81 Anemia due to antineoplastic chemotherapy (principal); D69.6 Thrombocytopenia, unspecified
CPT/HCPCS: 85025; 36415; 86900; 86850; 86901; 36430; J1642; P9035; P9016; J7050

== ENCOUNTER 2020-07-05 08:06 | Day surgery (SDC) | payer OTHER, SELFPAY ==
--- OUTSIDE RECORDS SUMMARY | 2020-07-05 08:08 | XMS REPORT | Clinical Summary ---
:1955 Author Organization [facility] Address [address] [place] [address] Care Team Providers Name Role Phone Theo [...] (#1) 2020 06/14/2017 Results Not on fileafter 07/05/2019
--- OUTSIDE RECORDS SUMMARY | 2020-07-05 08:08 | XMS REPORT | Continuity of Care Document ---
:1955 Author Organization [facility] t Address [address] [place] [address] Care Team Providers Name Role Phone Samuel [...] Date Quantity Comments Source Sex Assigned At [facility] Medications Ordered Filled Start Stop Current [...] Source BP Systolic 2017-09-09 77 mm[Hg] Location: [facility] 08:55:00 [place] Physician s BP Diastolic 2017-09-09 51 mm[Hg] Location: RUE; [facility] 08:55:00 [place] Physician s Height 2017-09-09 63 [in_us] [facility] 08:55:00 [place] Physician s Weight 2017-09-09 178 [lb_av] [facility] 08:55:00 [place] Physician s Body Mass Index 2017-09-09 31.53 kg/m2 University o f Calculated 08:55:00 [place] Physician s Heart Rate 2017-09-09 51 /min Location: R [facility] 08:55:00 Brachial [place] Physician s Artery; Procedures Procedure Date / Time Performed Performing Clinician Jason makenna Carotid artery 2017-09-09 00:00:00 [facility] bilateral Duplex Physicians [id number] Plan of Care Planned Activity Planned Date Details Comments Source Future Scheduled 2020-02-[address] [facility] - Test 00:00:00 (#1) [code = [facility] INFLUENZA VACCINE (#1)] Future Scheduled [address] [facility] Test 00:00:00 (procedure) [code = [facility] 92165650] Future Scheduled [address] [facility] Test 00:00:00 malignant neoplasm Medical C enter of cervix (procedure) [code = 194523420] Future Scheduled [address] [facility] Test 00:00:00 malignant neoplasm Medical C enter of breast (procedure) [code = 976703311] Future Scheduled [address] [facility] - Test 00:00:00 malignant neoplasm Medical C enter of colon (procedure) [code = 032144559] Encounters Start End Encounter Admission Attending Care Care Encounter Source Date/Time Date/Time Type Type Clinicians Facility Department ID 2020-04-27 2020-04-27 [facility] [id number] 09:29:45 23:59:00 Encounter Federico Grissom [id number] [place] [id number] [place] [id number] 2020-04-24 2020-04-24 Orders Doctor CHRISTIANSON [id number] 00:00:00 00:00:00 Only Unassigned, CHRISTOPHER [id number] [place] [facility] [id number] [id number] 2020-04-11 2020-04-11 Orders Doctor SAMMY 1.2.840.114 [id number] 00:00:00 00:00:00 Only Unassigned, CHRISTOPHER [id number] [place] [facility] [id number] [id number] 2020-03-17 2020-03-17 Telephone Moise [facility] [id number] 00:00:00 00:00:00 [facility] [id number] Surgical [id number] Specialti [id number] es [address] [place] 2020-03-08 2020-03-15 Office Earnestine [facility] [id number] 15 13:28:06 15:05:11 Visit Federico [facility] [id number] Surgical [id number] Specialti [id number] es [address] [place] 2020-03-03 2020-03-03 Orders Doctor SAMMY [id number] 00:00:00 00:00:00 Only Unassigned, CHRISTOPHER [id number] [place] [facility] [id number] [id number] 2017-12-10 2017-12-10 Appointmen EMMANUEL GONZALES UTP [id number] Univers 11:30:00 11:30:00 t; HALIMA GONZALES, NANOFABRICATION SPECIALIST [facility] of [place], [place] NANOFABRICATION SPECIALIST Physici ans 2017-09-09 2017-09-09 Appointmen EMMANUEL GONZALES Neurology [id number] Univers 09:30:00 09:30:00 t; HALIMA GONZALES, NANOFABRICATION SPECIALIST [facility] [place] NANOFABRICATION SPECIALIST Physici ans Results Test Description Test Time Test Comments Results Result Sour e Comments CT, CHEST, 2018-11-01 NEED 0.625mm CUTS FOR FINAL REPORT PATIENT WITHOUT IV 7 FUSION Moreno ID: [id number] EXAM: CONTRAST 11:11:[address] Chest, high PROTOCOLComments resolution, WITHOUT NEED 0.625mm CUTS FOR contrastINDICATION: FUSION Moreno lung mass ONLYNAV BRONCH COMPARISON: CT chest PROTOCOL from [facility] 08/12/2018. TECHNIQUE:Chest was scanned utilizing [...] workstation for fusion software used by the lottery manager. IV CONTRAST: None COMPLICATIONS: None RADIATION DOSE: [...] Date/Time: 11/17/2018 11:11:42 Reading Location: [facility] Reading Room [address] [place] [address]
[2020-07-05] MEDS ORDERED: NA CHLORIDE 0.9% 500 ML ONE ×2 (09:15→11:03)
[2020-07-05 09:49] VITALS: BMI 19.8
[2020-07-05 13:42] VITALS: BP 149/82; TEMP 98.1; O2SAT 98
[2020-07-05] MEDS ORDERED: HEPARIN 500 UNIT/5 ML SYR IV ONE (14:47)
[2020-07-05 14:54] LABS: Hematocrit 27.6 % (36.0-45.0)
== END 2020-07-05 15:00 | disposition home or self-care (01) ==
LOC: DS 08:06
PROVIDERS: ATTEND Internal Medicine Hematology & Oncology
PROC: 30233N1 Transfusion of Nonautologous Red Blood Cells into Peripheral Vein, Percutaneous Approach (ICD-10-PCS; principal; 2020-07-05)
DX: D64.9 Anemia, unspecified (principal)
CPT/HCPCS: 36415; 86900; 86850; 86901; 85018; 85014; 36430 ×2; J1642; P9016 ×2; J7040 ×2; P9021

== ENCOUNTER 2020-08-21 10:11 | Observation (INO) | payer OTHER, SELFPAY ==
--- OUTSIDE RECORDS SUMMARY | 2020-08-21 10:14 | XMS REPORT | Continuity of Care Document ---
:1955 Author Organization [facility] t Address [address] [place] [address] Care Team Providers Name Role Phone Samuel [...] Date Quantity Comments Source Sex Assigned At [facility] Medications Ordered Filled Start Stop Current [...] Source BP Systolic 2017-09-09 77 mm[Hg] Location: [facility] 08:55:00 [place] Physician s BP Diastolic 2017-09-09 51 mm[Hg] Location: RUE; [facility] 08:55:00 [place] Physician s Height 2017-09-09 63 [in_us] [facility] 08:55:00 [place] Physician s Weight 2017-09-09 178 [lb_av] [facility] 08:55:00 [place] Physician s Body Mass Index 2017-09-09 31.53 kg/m2 University o f Calculated 08:55:00 [place] Phys[facility] s Heart Rate 2017-09-09 51 /min Location: R [facility] 08:55:00 Brachial [place] Phys[facility] Artery; Procedures Procedure Date / Time Performed Performing Clinician Jason makenna Carotid artery 2017-09-09 00:00:00 [facility] bilateral Duplex Physicians [id number] Plan of Care Planned Activity Planned Date Details Comments Source Future Scheduled 2020-02-[address] [facility] - Test 00:00:00 (#1) [code = [facility] INFLUENZA VACCINE (#1)] Future Scheduled [address] [facility] Test 00:00:00 (procedure) [code = [facility] 89828067] Future Scheduled [address] [facility] Test 00:00:00 malignant neoplasm Medical C enter of cervix (procedure) [code = 132994038] Future Scheduled [address] [facility] 00:00:00 malignant neoplasm Medical C enter of breast (procedure) [code = 897609583] Future Scheduled [address] [facility] Test 00:00:00 malignant neoplasm Medical C enter of colon (procedure) [code = 145097847] Encounters Start End Encounter Admission Attending Care Care Encounter Source Date/Time Date/Time Type Type Clinicians Facility Department ID 2020-04-27 2020-04-27 [facility] 1.2.840.114 [id number] 09:29:45 23:59:00 Encounter Federico Grissom [id number] [place] 4.2.7.2.686 [place] [id number] 2020-04-24 2020-04-24 Orders Doctor CHRISTIANSON 1.2.840.114 [id number] 00:00:00 00:00:00 Only Unassigned, CHRISTOPHER [id number] [place] [facility] [id number] [id number] [id number] 2020-04-11 2020-04-11 Orders Doctor SAMMY 1.2.840.114 [id number] 00:00:00 00:00:00 Only Unassigned, CHRISTOPHER [id number] [facility] 4.2.7.2.686 [id number] [id number] 2020-03-17 2020-03-17 Telephone Moise [facility] 1.2.840.114 [id number] 00:00:00 00:00:00 [facility] [id number] Surgical 4.2.7.2.686 Specialti [id number] es [address] [place] 2020-03-08 2020-03-15 Office Earnestine [facility] 1.2.840.114 [id number] 13:28:06 15:05:11 Visit Federico [facility] [id number] Surgical 4.2.7.2.686 Specialti [id number] es [address] [place] 2020-03-03 2020-03-03 Orders Doctor SAMMY 1.2.840.114 [id number] 00:00:00 00:00:00 Only Unassigned, CHRISTOPHER [id number] [facility] 4.2.7.2.686 [id number] [id number] 2017-12-10 2017-12-10 Appointmen EMMANUEL GONZALES UTP [id number] Univers 11:30:00 11:30:00 t; HALIMA GONZALES, TYPING SECRETARY ity of [place], [place] TYPING SECRETARY Physici ans 2017-09-09 2017-09-09 Appointmen EMMANUEL GONZALES Neurology [id number] Univers 09:30:00 09:30:00 t; HALIMA GONZALES, TYPING SECRETARY [facility] [place], [place] TYPING SECRETARY Physici ans Results Test Description Test Time Test Comments Results Result Sour e Comments CT, CHEST, 2018-11-01 NEED 0.625mm CUTS FOR FINAL REPORT PATIENT WITHOUT IV 7 FUSION Moreno ID: [id number] EXAM: CONTRAST 11:11:[address] Chest, high PROTOCOLComments resolution, WITHOUT NEED 0.625mm CUTS FOR contrastINDICATION: FUSION Moreno lung mass ONLYNAV BRONCH COMPARISON: CT chest PROTOCOL from [facility] 08/12/2018. TECHNIQUE:Chest was scanned utilizing a [...] workstation for fusion software used by the welfare worker. IV CONTRAST: None COMPLICATIONS: None RADIATION DOSE: [...] MDReport Verified Date/Time: 11/17/2018 11:11:42 Reading Location: [facility] Reading Room [address] [place] [address]
[2020-08-21 11:10] LABS: Absolute Lymphocytes (CBC) 0.7 K/uL (0.7-4.9); Basophils % 0.6 % (0-1.3); Hematocrit 26.1 % (36.0-45.0); MPV 8.5 fL (7.6-11.3); RBC Red Blood Cell Count 2.59 M/uL (3.86-4.86)
[2020-08-21] MEDS ORDERED: ONDANSETRON 4 MG/2 ML VIAL ONE (11:18)
[2020-08-21] MEDS ORDERED: MORPHINE 4 MG/ML SYR ONE ×3 (11:18→16:30)
[2020-08-21 11:39] LABS: ALT/SGPT 12 U/L (12-78); AST/SGOT 34 U/L (15-37); Albumin 2.6 g/dL (3.4-5.0); Alkaline Phosphatase 104 U/L (45-117); BUN Blood Urea Nitrogen 14 mg/dL (7-18); Bicarbonate 29 mmol/L (21-32); Bilirubin Direct 0.4 mg/dL (0-0.2); Bilirubin Total 0.9 mg/dL (0.2-1.0); Glucose Level 95 mg/dL (74-106); Lipase 52 U/L (73-393); Potassium 3.4 mmol/L (3.5-5.1); Protein, Total 7.2 g/dL (6.4-8.2); Sodium Level 138 mmol/L (136-145)
[2020-08-21 11:40] LABS: Magnesium 1.3 mg/dL (1.8-2.4)
[2020-08-21] MEDS ORDERED: NA CHLORIDE 0.9% 1,000 ML ONE ×2 (12:04→14:19)
[2020-08-21] MEDS ORDERED: Magnesium Sulfate 2gm IVPB 2 G/50 ML BAG IV ONE (12:04)
--- NOTE | 2020-08-21 12:20 | RAD REPORT ---
EXAM DESCRIPTION: CT - Abdomen Pelvis W Contrast - 08/21/2020 11:39 am CLINICAL HISTORY: Abd pain;Nausea / vomiting, patient has known advanced abdominal of lung carcinoma COMPARISON: CT study March 30, 2020 TECHNIQUE: Biphasic, helical CT imaging of the abdomen and pelvis was performed following 100 ml non -ionic IV contrast. No oral contrast administered. All CT scans are performed using dose optimization technique as appropriate and may include automated exposure control or mA/KV adjustment according to patient size. FINDINGS: No suspicious findings in the lung bases. The liver and spleen show no suspicious findings. No pancreatic origin mass identifiable. No acute fi nding in the distended gallbladder. Gallstones can be occult. Intrahepatic and extrahepatic biliary t ree dilatation are present similar to prior imaging. Duct stones can be occult. An obstructing pancre atic or duodenal mass not identified. Renal function remains symmetric. No renal parenchymal origin mass identified. There is hydronephrosi s of the left collecting system without obstructing calculus. Dilatation is due to extrinsic compress ion from a large pelvic mass. The enhancing pelvic mass measures 9.4 x 6.7 cm substantially enlarged from March 2020 were the mass measured approximately 5.1 x 4.3 cm. No bladder abnormalities. The very large lobulated vigorously enhancing adrenal region masses have substantially enlarged from the prior study. The confluence of malignant tissue on the left side measures 13.3 x 10.6 cm compared to 10.5 x 7.6 cm. The right adrenal mass shows similar enlargement. Periaortic/pericaval lymphadenop athy has progressed. Left iliac crest known lesion has enlarged. The intra osseous lesion has enlarge d from 1.6 cm to 2.8 cm. Inner and outer table disruption has occurred. The extraosseous component of the mass along the inner table is approximately 2.7 cm which is new from prior imaging. No gastric dilatation or gastric wall thickening. No acute GI finding identified. No free air or pne umatosis. A small amount of ascites is present. No other clearly pathologic bone changes. IMPRESSION: The patient's known abdomen and pelvic malignant masses and the known left ilium mass ontiveros ve all substantially enlarged from March 2020. Biliary tree dilatation not substantially different from March. Duct stones can be occult. An obstr ucting mass of the pancreas or duodenum is not seen. Mild left-sided hydronephrosis due to progressive extrinsic compression on the distal ureter by the p elvic mass. Small amount of ascites. No free air or surgically emergent finding.
[2020-08-21 13:14] LABS: Blood Morphology Comment NOT SEEN (NOT SEEN); Platelet Estimate ADEQ; White Blood Cell Scan OK (OK)
[2020-08-21] MEDS ORDERED: POTASSIUM 25 MEQ EFFERV TAB ONE (13:34)
[2020-08-21] MEDS ORDERED: FENTANYL CITR 100 MCG/2 ML ONE ×2 (13:34→14:19)
--- NOTE | 2020-08-21 14:05 | ER ---
Nurse's Notes [facility] Name: Tori Rodríguez Age: 65 yrs Sex: Female : 1955 Arrival Date: 08/21/2020 Time: 10:16 Bed 6 Private MD: Jailyn Krishnamurthy Diagnosis: Unspecified abdominal pain-intractable Presentation: 08/21 10:27 Chief complaint: Patient states: "I have stage 3 lung cancer and abdominal cancer and I aa5 ran out of my morphine yesterday so my doctor told me to come to the ER". Pt reports last chemotherapy was last week. Pt c/o lower abd pain and low back pain. 10:27 Onset of symptoms was August 21, 2020. aa5 10:27 Acuity: BRI 3 aa5 10:27 Method Of Arrival: Wheelchair aa5 11:08 Coronavirus screen: At this time, the client does not indicate any symptoms associated jd3 with coronavirus-19. Ebola Screen: Patient negative for fever greater than or equal to 101.5 degrees Fahrenheit, and additional compatible Ebola Virus Disease symptoms. Initial Sepsis Screen: Does the patient meet any 2 criteria? No. Patient's initial sepsis screen is negative. Does the patient have a suspected source of infection? No. Patient's initial sepsis screen is negative. Risk Assessment: Do you want to hurt yourself or someone else? Patient reports no desire to harm self or others. Historical: - Allergies: 10:38 No Known Allergies; aa5 - PMHx: 10:38 BOWEL PERFORATION; Diverticulitis; Lung Cancer; with mets; aa5 - PSHx: 10:38 Appendectomy; Tonsillectomy; Carpal Tunnel Repair; aa5 - Immunization history:: Adult Immunizations unknown. - Social history:: Smoking status: unknown. Screenin:08 Abuse screen: Denies threats or abuse. Nutritional screening: No deficits noted. jd3 Tuberculosis screening: No symptoms or risk factors identified. Fall Risk Ambulatory Aid- None/Bed Rest/Nurse Assist (0 pts). Gait- Normal/Bed Rest/Wheelchair (0 pts) Mental Status- Oriented to own ability (0 pts). Total Brock Fall Scale indicates No Risk (0-24 pts). Assessment: 11:06 General: Appears in no apparent distress. uncomfortable, Behavior is calm, cooperative, jd3 appropriate for age. Pain: Complains of pain in abdomen Quality of pain is described as sharp, stabbing, tender. Neuro: Level of Consciousness is awake, alert, obeys commands, Oriented to person, place, time, situation. Cardiovascular: Denies chest pain, Capillary refill < 3 seconds Patient's skin is warm and dry. Respiratory: Airway is patent Respiratory effort is even, unlabored, Respiratory pattern is regular, symmetrical, Denies cough, shortness of breath. GI: Abdomen is round non-distended, Abd is soft X 4 quads Abdomen is tender to palpation X 4 quads. Reports lower abdominal pain, upper abdominal pain, nausea. : No signs and/or symptoms were reported regarding the genitourinary system. EENT: No signs and/or symptoms were reported regarding the EENT system. Derm: Skin is intact, Skin is dry, Skin is pale, Skin temperature is warm. Musculoskeletal: Circulation, motion, and sensation intact. Range of motion: intact in all extremities. 12:19 Reassessment: Patient appears in no apparent distress at this time. No changes from jd3 previously documented assessment. Patient and/or family updated on plan of care and expected duration. Pain level reassessed. Patient is alert, oriented x 3, equal unlabored respirations, skin warm/dry/pink. 13:15 Reassessment: Patient appears in no apparent distress at this time. No changes from jd3 previously documented assessment. Patient and/or family updated on plan of care and expected duration. Pain level reassessed. Patient is alert, oriented x 3, equal unlabored respirations, skin warm/dry/pink. 14:00 Reassessment: Patient appears in no apparent distress at this time. No changes from jd3 previously documented assessment. Patient and/or family updated on plan of care and expected duration. Pain level reassessed. Patient is alert, oriented x 3, equal unlabored respirations, skin warm/dry/pink. 15:00 Reassessment: Patient appears in no apparent distress at this time. No changes from jd3 previously documented assessment. Patient and/or family updated on plan of care and expected duration. Pain level reassessed. Patient is alert, oriented x 3, equal unlabored respirations, skin warm/dry/pink. 16:00 Reassessment: Patient appears in no apparent distress at this time. No changes from jd3 previously documented assessment. Patient and/or family updated on plan of care and expected duration. Pain level reassessed. Patient is alert, oriented x 3, equal unlabored respirations, skin warm/dry/pink. awaiting COVID results for admission. 17:00 Reassessment: Patient appears in no apparent distress at this time. Patient and/or jd3 family updated on plan of care and expected duration. Pain level reassessed. Patient is alert, oriented x 3, equal unlabored respirations, skin warm/dry/pink. Vital Signs: 10:27 BP 133 / 83; Pulse 83; Resp 18 S; Temp 98.0(TE); Pulse Ox 100% on R/A; Weight 48.99 kg aa5 (R); Height 5 ft. 3 in. (160.02 cm) (R); 12:18 BP 98 / 57; Pulse 77; Resp 18 S; Pulse Ox 99% on R/A; jd3 16:17 BP 155 / 88; Pulse 76; Resp 17 S; Pulse Ox 99% on R/A; jd3 10:27 Body Mass Index 19.13 (48.99 kg, 160.02 cm) aa5 ED Course: 10:16 Patient arrived in ED. am2 10:17 Jailyn Krishnamurthy MD is Private Physician. am2 10:27 Arm band placed on. aa5 10:32 John Chew PA is PHCP. cp 10:32 Cee Mcdonald MD is Attending Physician. cp 10:37 Triage completed. aa5 10:44 Chang Hammond, RN is Primary Nurse. bp 11:04 Inserted saline lock: 22 gauge in left antecubital area, using aseptic technique. Blood jd3 collected. 11:08 Patient has correct armband on for positive identification. Placed in gown. Bed in low jd3 position. Call light in reach. Side rails up X2. Pulse ox on. NIBP on. 11:09 Primary Nurse role handed off by Chang Hammond, RN jd3 11:09 Espinoza Gould, TAYLOR is Primary Nurse. jd3 11:39 CT Abd/Pelvis - IV Contrast Only In Process Unspecified. EDMS 14:03 Prashant Tipton DO is Hospitalizing Provider. cp 16:59 No provider procedures requiring assistance completed. Patient admitted, IV remains in jd3 place. Administered Medications: 11:06 Drug: morphine 4 mg Route: IVP; Site: left antecubital; jd3 12:00 Follow up: Response: No adverse reaction; RASS: Alert and Calm (0) jd3 11:06 Drug: Zofran (Ondansetron) 4 mg Route: IVP; Site: left antecubital; jd3 12:00 Follow up: Response: No adverse reaction jd3 11:53 Drug: morphine 4 mg Route: IVP; Site: left antecubital; jd3 12:50 Follow up: Response: No adverse reaction; RASS: Alert and Calm (0) jd3 11:54 Drug: Magnesium Sulfate 2 grams Route: IVPB; Infused Over: 2 hrs; Site: left [facility] antecubital; 12:50 Follow up: Response: No adverse reaction; IV Status: Completed infusion jd3 11:54 Drug: NS 0.9% 1000 ml Route: IV; Rate: 1000 ml/hr; Site: left antecubital; jd3 12:50 Follow up: Response: No adverse reaction; IV Status: Completed infusion; IV Intake: jd3 1000ml 12:45 CANCELLED (Physician Discretion): Cipro (ciprofloxacin) 500 mg PO once cp 12:46 CANCELLED (Physician Discretion): metroNIDAZOLE 500 mg 100 ml IVPB once over 30 mins cp 13:33 Drug: Potassium Effervescent Tablet 25 mEq Route: PO; jd3 14:30 Follow up: Response: No adverse reaction jd3 13:33 Drug: fentaNYL (PF) 25 mcg Route: IVP; Site: left antecubital; jd3 14:30 Follow up: Response: No adverse reaction; RASS: Alert and Calm (0) jd3 14:07 Drug: fentaNYL (PF) 50 mcg Route: IVP; Site: left antecubital; aa5 14:12 Follow up: Response: No adverse reaction aa5 14:07 Drug: NS 0.9% 1000 ml Route: IV; Rate: 75 ml/hr; Site: left antecubital; aa5 15:00 Follow up: Response: No adverse reaction; IV Status: Infusion continued upon admission jd3 15:28 Drug: morphine 2 mg Route: IVP; Site: left antecubital; aa5 16:20 Follow up: Response: No adverse reaction; RASS: Alert and Calm (0) jd3 16:16 Drug: morphine 4 mg Route: IVP; Site: left antecubital; jd3 17:00 Follow up: Response: No adverse reaction; RASS: Alert and Calm (0) jd3 Intake: 12:50 IV: 1000ml; Total: 1000ml. jd3 Outcome: 14:04 Decision to Hospitalize by Provider. cp 16:59 Admitted to Med/surg accompanied by tech, via wheelchair, room 209, with chart, Report jd3 called to Maisha VAZQUEZ 16:59 Condition: stable 16:59 Instructed on the need for admit, Demonstrated understanding of instructions. 17:00 Patient left the ED. jd3 Signatures: Dispatcher [employer] EDMS Chapis Perez RN RN aa5 John Chew PA PA cp Asmita Ontiveros am2 Espinoza Gould RN RN jd3 Chang Hammond RN RN bp Corrections: (The following items were deleted from the chart) 14:08 10:27 BP 133 / 83; Pulse 83bpm; Resp 18bpm; Spontaneous; Pulse Ox 100% RA; 48.99 kg aa5 Reported; Height 5 ft. 3 in. Reported; BMI: 19.1; aa5
--- NOTE | 2020-08-21 14:05 | EDPHYS ---
Physician Documentation [facility] Name: Tori Rodríguez Age: 65 yrs Sex: Female : 1955 Arrival Date: 08/21/2020 Time: 10:16 Bed 6 Private MD: Jailyn Krishnamurthy ED Physician Cee Mcdonald HPI: 08/21 10:45 This 65 yrs old Female presents to ER via Wheelchair with complaints of cp Abdominal Pain, Back Pain. 10:45 The patient presents with abdominal pain mid abdomen. cp 10:45 Onset: The symptoms/episode began/occurred chronically, became worse yesterday after cp running out of pain medications 2 days ago. 10:45 Associated signs and symptoms: Pertinent positives: nausea and vomiting, Pertinent cp negatives: constipation, diarrhea, dysuria, fever. Severity of pain: in the emergency department the pain is actually worse markedly. Patient with a history of metastatic lung CA and is a patient of DR Hamilton. Patient reports running out of pain medications 2 days ago. Patient reports nausea and vomiting. Historical: - Allergies: 10:38 No Known Allergies; aa5 - PMHx: 10:38 BOWEL PERFORATION; Diverticulitis; Lung Cancer; with mets; aa5 - PSHx: 10:38 Appendectomy; Tonsillectomy; Carpal Tunnel Repair; aa5 - Immunization history:: Adult Immunizations unknown. - Social history:: Smoking status: unknown. ROS: 11:00 Constitutional: Positive for poor PO intake, Negative for body aches, chills, fever. cp 11:00 Eyes: Negative for injury, pain, redness, and discharge. cp 11:00 ENT: Negative for ear pain, sore throat, difficulty swallowing, difficulty handling secretions. 11:00 Cardiovascular: Negative for chest pain. 11:00 Respiratory: Negative for cough, shortness of breath, wheezing. 11:00 Abdomen/GI: Positive for abdominal pain, nausea and vomiting, anorexia, Negative for diarrhea, constipation, black/tarry stool, rectal bleeding. 11:00 Back: Negative for pain at rest, pain with movement. 11:00 : Negative for urinary symptoms. 11:00 Skin: Negative for rash. 11:00 Neuro: Negative for altered mental status, headache. 11:00 All other systems are negative. Exam: 11:05 Constitutional: The patient appears in no acute distress, alert, awake, cp non-diaphoretic, non-toxic, well developed, frail, uncomfortable. 11:05 Head/Face: Normocephalic, atraumatic. cp 11:05 Eyes: Periorbital structures: appear normal, Conjunctiva: normal, no exudate, no injection, Sclera: no appreciated abnormality, Lids and lashes: appear normal, bilaterally. 11:05 ENT: External ear(s): are unremarkable, Nose: is normal, Mouth: Lips: dry, Oral mucosa: dry, Posterior pharynx: Airway: no evidence of obstruction, patent. 11:05 Neck: ROM/movement: is normal, is supple, without pain, no range of motions limitations. 11:05 Chest/axilla: Inspection: normal, Palpation: is normal, no crepitus, no tenderness. 11:05 Cardiovascular: Rate: normal, Rhythm: regular, Edema: is not appreciated, JVD: is not appreciated. 11:05 Respiratory: the patient does not display signs of respiratory distress, Respirations: normal, no use of accessory muscles, no retractions, labored breathing, is not present, Breath sounds: are clear throughout, no decreased breath sounds, no stridor, no wheezing. 11:05 Abdomen/GI: Inspection: abdomen appears normal, Bowel sounds: active, all quadrants, Palpation: soft, in all quadrants, severe abdominal tenderness, in all quadrants, rebound tenderness, is not appreciated, voluntary guarding, is elicited in all quadrants. 11:05 Back: pain, is absent, vertebral tenderness, is not appreciated. 11:05 Skin: cellulitis, is not appreciated, no rash present. 11:05 Neuro: Orientation: to person, place \\T\\ time. Mentation: is normal, Motor: moves all fours, strength is normal. Vital Signs: 10:27 BP 133 / 83; Pulse 83; Resp 18 S; Temp 98.0(TE); Pulse Ox 100% on R/A; Weight 48.99 kg aa5 (R); Height 5 ft. 3 in. (160.02 cm) (R); 12:18 BP 98 / 57; Pulse 77; Resp 18 S; Pulse Ox 99% on R/A; jd3 16:17 BP 155 / 88; Pulse 76; Resp 17 S; Pulse Ox 99% on R/A; jd3 10:27 Body Mass Index 19.13 (48.99 kg, 160.02 cm) aa5 MDM: 10:35 Patient medically screened. 11:00 Differential diagnosis: bowel obstruction, cholecystitis, Cholelithiasis, cp diverticulitis, non-specific abd pain, Ureterolithiasis, urinary tract infection. 13:00 Data reviewed: vital signs, nurses notes, lab test result(s), radiologic studies, CT cp scan. 13:00 Response to treatment: the patient's symptoms have mildly improved after treatment. 13:17 Physician consultation: Jailyn Jacinto MD was called at 13:19, left message on voicemail. 14:05 Physician consultation: Prashant Tipton DO was called at 14:00, was contacted at 14:00, regarding admission, to the medical/surgical unit. patient's condition, and will see patient in ED, shortly. 08/21 10:40 Order name: Basic Metabolic Panel 08/21 10:40 Order name: CBC with Diff; Complete Time: 14:02 08/21 11:41 Interpretation: Normal except: WBC 11.00; RBC 2.59; HGB 8.6; HCT 26.1; MCV 100.9; RDW cp 20.5; DAVID% 90.8; LYM% 6.0; MN% 2.3; NEUT A 10.0. 08/21 10:40 Order name: Hepatic Function; Complete Time: 11:41 08/21 10:40 Order name: Lipase; Complete Time: 11:41 08/21 10:40 Order name: Urine Microscopic Only 08/21 10:40 Order name: Magnesium; Complete Time: 11:41 08/21 10:41 Order name: CT Abd/Pelvis - IV Contrast Only; Complete Time: 12:46 08/21 10:41 Order name: Basic Metabolic Panel; Complete Time: 11:41 [facility] 08/21 13:14 Order name: CBC Smear Scan; Complete Time: 14:02 [facility] 08/21 14:08 Order name: COVID-19 : Document "Date of Symptom Onset" if Symptomatic. [facility] 08/21 14:13 Order name: Urine Dipstick--Ancillary (enter results) [facility] 08/21 16:12 Order name: SARS-COV-2 RT PCR [facility] 08/21 10:40 Order name: IV Saline Lock; Complete Time: 11:06 cp 08/21 10:40 Order name: Labs collected and sent; Complete Time: 11:06 cp 08/21 10:40 Order name: Urine Dipstick-Ancillary (obtain specimen); Complete Time: 14:12 cp Administered Medications: 11:06 Drug: morphine 4 mg Route: IVP; Site: left antecubital; jd3 12:00 Follow up: Response: No adverse reaction; RASS: Alert and Calm (0) jd3 11:06 Drug: Zofran (Ondansetron) 4 mg Route: IVP; Site: left antecubital; jd3 12:00 Follow up: Response: No adverse reaction jd3 11:53 Drug: morphine 4 mg Route: IVP; Site: left antecubital; jd3 12:50 Follow up: Response: No adverse reaction; RASS: Alert and Calm (0) jd3 11:54 Drug: Magnesium Sulfate 2 grams Route: IVPB; Infused Over: 2 hrs; Site: left [facility] antecubital; 12:50 Follow up: Response: No adverse reaction; IV Status: Completed infusion jd3 11:54 Drug: NS 0.9% 1000 ml Route: IV; Rate: 1000 ml/hr; Site: left antecubital; jd3 12:50 Follow up: Response: No adverse reaction; IV Status: Completed infusion; IV Intake: jd3 1000ml 12:45 CANCELLED (Physician Discretion): Cipro (ciprofloxacin) 500 mg PO once cp 12:46 CANCELLED (Physician Discretion): metroNIDAZOLE 500 mg 100 ml IVPB once over 30 mins cp 13:33 Drug: Potassium Effervescent Tablet 25 mEq Route: PO; jd3 14:30 Follow up: Response: No adverse reaction jd3 13:33 Drug: fentaNYL (PF) 25 mcg Route: IVP; Site: left antecubital; jd3 14:30 Follow up: Response: No adverse reaction; RASS: Alert and Calm (0) jd3 14:07 Drug: fentaNYL (PF) 50 mcg Route: IVP; Site: left antecubital; aa5 14:12 Follow up: Response: No adverse reaction aa5 14:07 Drug: NS 0.9% 1000 ml Route: IV; Rate: 75 ml/hr; Site: left antecubital; aa5 15:00 Follow up: Response: No adverse reaction; IV Status: Infusion continued upon admission jd3 15:28 Drug: morphine 2 mg Route: IVP; Site: left antecubital; aa5 16:20 Follow up: Response: No adverse reaction; RASS: Alert and Calm (0) jd3 16:16 Drug: morphine 4 mg Route: IVP; Site: left antecubital; jd3 17:00 Follow up: Response: No adverse reaction; RASS: Alert and Calm (0) jd3 Disposition: 08/21/20 14:04 Hospitalization ordered by Prashant Tipton for Inpatient Admission. Preliminary diagnosis is Unspecified abdominal pain - intractable. - Bed requested for Telemetry/MedSurg (Inpatient). - Status is Inpatient Admission. jd3 - Condition is Fair. - Problem is an ongoing problem. - Symptoms have improved. Addendum: 08/22/2020 19:30 Co-signature as Attending Physician, Cee Mcdonald MD. m a2 Signatures: Dispatcher [employer] EDChapis Rushing RN RN aa5 John Chew PA PA cp Davies, Jonathon, RN RN jd3 Cee Mcdonald MD MD ma2 Corrections: (The following items were deleted from the chart) 08/21 12:45 12:45 Cipro (ciprofloxacin) 500 mg PO once ordered. cp cp 12:46 12:45 metroNIDAZOLE 500 mg 100 ml IVPB once over 30 mins ordered. cp cp 15:28 14:04 Hospitalization Ordered by Prashant Tipton DO for Inpatient Admission. Preliminary aa5 diagnosis is Unspecified abdominal pain - intractable. Bed requested for Telemetry/MedSurg (Inpatient). Status is Inpatient Admission. Condition is Fair. Problem is an ongoing problem. Symptoms have improved. cp 17:00 15:28 08/21/2020 14:04 Hospitalization Ordered by Prashant Tipton DO for Inpatient jd3 Admission. Preliminary diagnosis is Unspecified abdominal pain - intractable. Bed requested for Telemetry/MedSurg (Inpatient). Status is Inpatient Admission. Condition is Fair. Problem is an ongoing problem. Symptoms have improved. aa5
[2020-08-21 14:36] LABS: Urine Bacteria <20 /HPF (<20); Urine RBC NONE SEEN /HPF (NONE SEEN)
--- NOTE | 2020-08-21 14:39 | P.HP ---
Certification for Inpatient Patient admitted to: Observation With expected LOS: <2 Midnights Patient will require the following post-hospital care: Other (Home hospice) Practitioner: I am a practitioner with admitting privileges, knowledge of patient current condition, hospital course, and medical plan of care. Services: Services provided to patient in accordance with Admission requirements found in Title 42 Section 412.3 of the Code of Federal Regulations Patient History Date of Service: 08/21/20 Primary Care Provider: Dr. Clark; Oncology-Dr. Hamilton Reason for admission: Intractable abdominal pain History of Present Illness: 65-year-old female with history of stage IV lung cancer with metastasis to the abdomen and pelvis. Patient presented to the emergency room with intractable abdominal pain and back pain. Patient reports she ran out of pain medication 2 days ago. Patient is seen by oncology. She takes fentanyl transdermal 50 mcg every 72 hr and morphine sulfate immediate release 15 mg every 4 hr. She apparently ran out of her immediate release medication. Pain continued to get worse. Pain mainly to the left side. It radiates to the back. She had some nausea. Patient denies any fever, chills. No dysuria noted. She denies any chest pain or shortness of breath. She came to the ER for further evaluation. In the ER patient was evaluated. White count 11, hemoglobin 8.6. Platelet count 152. Sodium 138, potassium 3.4. BUN of 14, creatinine 0.68 with a GFR greater than 90. Glucose 96. Magnesium 1.3. Urinalysis pending. Lipase 52. CT scan shows no suspicious lung masses. Renal function remained symmetric. Hydronephrosis of the left collecting system without obstructing calculus noted. Dilation due to extrinsic compression from large pelvic mass. Enhancing pelvic mass measures 9.4 x 6.7 cm substantially larger from March 2020. Mass at that time measured 5.1 x 4.3 cm. No bladder abnormalities noted. A very large lobulated vigorously enhancing adrenal region mass is have substantially enlarged from a prior study. The confluence of malignant tissue on the left side measures 13.3 x 10.6 cm compared to 10.5 x 7.6 cm prior. The right adrenal mass shows similar enlargement. Fatou aortic/pericaval lymphadenopathy has progress. Left iliac crest known lesion has in large. The intraosseous lesion has an large from 1.6 cm to 2.8 cm. The extraosseous component of the mass along the inner table is approximately 2.7 cm which is new from prior imaging. Patient was given multiple rounds of pain medication without significant relief. Patient was admitted for further evaluation and treatment. ER physician spoke to her oncologist who agreed with plan to admit to control pain. Allergies No Known Allergies Allergy (Verified 05/19/20 15:03) Home medications list reviewed: Yes Home Medications: Aspirin [Adult Low Dose Aspirin EC] 81 mg PO DAILY 04/26/20 Carvedilol [Coreg] 12.5 mg PO BID 04/26/20 Morphine Sulfate [Morphine Sulfate ER] 30 mg PO Q8H PRN 04/26/20 Pantoprazole [Protonix Tab*] 40 mg PO DAILY 04/26/20 Zolpidem Tartrate 10 mg PO DAILY 04/26/20 Duloxetine HCl 1 tab PO DAILY 05/19/20 Fluconazole 1 tab PO DAILY 05/19/20 Gabapentin [Gralise] 1 tab PO TID 05/19/20 Hydrocodone Bit/Acetaminophen [Hydrocodon-Acetaminophn 10-325] 1 tab PO Q8HR 05/19/20 Olanzapine [Zyprexa] 1 tab PO DAILY 05/19/20 Potassium Chloride 1 tab PO BID 05/19/20 Trazodone [Desyrel*] 1 tab PO DAILY 05/19/20 dexAMETHasone [Dexamethasone] 1 tab PO BID 05/19/20 predniSONE [Deltasone*] 1 tab PO DAILY 05/19/20 - Past Medical/Surgical History -: Hypertension -: Chronic pain Past Surgical History: Reviewed- Non-Contributory Psychosocial/ Personal History: Patient is a . she lives by herself. - Family History Family History: Reviewed- Non-Contributory - Social History Smoking Status: Heavy Tobacco smoker (>10 cigarettes/day) Smoking therapy provided: Yes Patient receptive to therapy: No Alcohol use: No CD- Drugs: No Caffeine use: No Place of Residence: Home Review of Systems General: As per HPI Eyes: Unremarkable ENT: Unremarkable Respiratory: Unremarkable Cardiovascular: Unremarkable Gastrointestinal: Abdominal Pain, As per HPI Genitourinary: Unremarkable Musculoskeletal: Back Pain, As per HPI Integumentary: Unremarkable Neurological: Unremarkable Lymphatics: Unremarkable Physical Examination - Physical Exam General: Alert, Oriented x3, Cooperative, Mild distress HEENT: Atraumatic, Normocephalic, PERRLA, Other (Dry mucous membranes) Respiratory: Clear to auscultation bilaterally, Normal air movement Cardiovascular: Normal pulses, Regular rate/rhythm Gastrointestinal: Normal bowel sounds, Soft and benign, Non-distended, No masses, No rebound, No guarding, Tenderness (Pain to the left flank) Musculoskeletal: No erythema, No warmth, Tenderness (Pain noted to the pelvic region) Neurological: Normal speech, Normal strength at 5/5 x4 extr, Normal tone, Normal affect - Studies Laboratory Data (last 24 hrs) 08/21/20 11:00: WBC 11.00 H, Hgb 8.6 L, Hct 26.1 L, Plt Count 152 08/21/20 11:00: Sodium 138, Potassium 3.4 L, BUN 14, Creatinine 0.63, Glucose 95 , Magnesium 1.3 L*, Total Bilirubin 0.9, AST 34, ALT 12, Alkaline Phosphatase 104, Lipase 52 L Assessment and Plan - Plan Impression: Intractable abdominal and back pain secondary to stage IV lung cancer with metastasis to the abdomen, adrenal region, pelvic mass and bone with significant periaortic/pericaval lymphadenopathy Mild left hydronephrosis due to progressive extrinsic compression on the ureter by pelvic mass Hypertension Chronic pain Tobacco abuse Plan: Intractable abdominal and back pain secondary to stage IV lung cancer with metastasis to the abdomen, adrenal region, pelvic mass and bone with significant periaortic/pericaval lymphadenopathy: Patient will be admitted for further evaluation and treatment. Would try to get her pain medication under control. Patient had been without short-acting morphine for at least 2 days. ER physician spoke to Oncology. Will increase fentanyl transdermal to 75 mcg every 72 hr. Will provide morphine immediate release 15 mg every 4 hr as needed for moderate pain and provide IV morphine every 4 hr as needed for breakthrough pain. Further adjustment may be required. Will also provide medication for anxiety. New findings of CT scan address in detail with the patient. There appears to be progression in the pelvic mass now measuring 9.4 x 6.7 cm. This previously was 5.1 x 4.3 cm. There is also a large lobulated adrenal region masses that have grown in size. Previously on the left side 13.3 cm x 10.6 cm now 10.5 x 7.6 cm. Due to the multiple findings in worsening cancer, hospice was recommended. Advanced care directives address in detail. Patient wishes to be do not resuscitate. Patient is agreeable to hospice. Will help arrange for outpatient hospice at discharge. If pain well controlled anticipate home as early as tomorrow with continued pain medication and hospice in place. Will discuss with nursing home social worker to help with set up of home hospice at discharge. This was addressed in detail with oncology who agrees with plan of care. I will turn the service over to the hospitalist team tomorrow. I will go over plan of care with him. Mild left hydronephrosis due to progressive extrinsic compression on the ureter by pelvic mass: Will provide mild hydration. Will monitor this closely. Hypertension: Blood pressure slightly low likely due to multiple rounds of pain medication. May need to adjust blood pressure medication. Chronic pain: Continue as above Tobacco abuse: Will provide nicotine patch. Discharge Plan: Home (With hospice) Plan to discharge in: 24 Hours - Advance Directives Does patient have a Living Will: No Does patient have a Durable POA for Healthcare: No - Code Status/Comfort Care Code Status Assessed: Yes (Patient is DNR) Physician Review Additional Text: No suspicious findings in the lung bases. The liver and spleen show no suspicious findings. No pancreatic origin mass identifiable. No acute finding in the distended gallbladder. Gallstones can be occult. Intrahepatic and extrahepatic biliary tree dilatation are present similar to prior imaging. Duct stones can be occult. An obstructing pancreatic or duodenal mass not identified. Renal function remains symmetric. No renal parenchymal origin mass identified. There is hydronephrosis of the left collecting system without obstructing calculus. Dilatation is due to extrinsic compression from a large pelvic mass. The enhancing pelvic mass measures 9.4 x 6.7 cm substantially enlarged from March 2020 were the mass measured approximately 5.1 x 4.3 cm. No bladder abnormalities. The very large lobulated vigorously enhancing adrenal region masses have substantially enlarged from the prior study. The confluence of malignant tissue on the left side measures 13.3 x 10.6 cm compared to 10.5 x 7.6 cm. The right adrenal mass shows similar enlargement. Periaortic/pericaval lymphadenopathy has progressed. Left iliac crest known lesion has enlarged. The intra osseous lesion has enlarged from 1.6 cm to 2.8 cm. Inner and outer table disruption has occurred. The extraosseous component of the mass along the inner table is approximately 2.7 cm which is new from prior imaging. No gastric dilatation or gastric wall thickening. No acute GI finding identified. No free air or pneumatosis. A small amount of ascites is present. No other clearly pathologic bone changes. IMPRESSION: The patient's known abdomen and pelvic malignant masses and the known left ilium mass have all substantially enlarged from March 2020. Biliary tree dilatation not substantially different from March. Duct stones can be occult. An obstructing mass of the pancreas or duodenum is not seen. Mild left-sided hydronephrosis due to progressive extrinsic compression on the distal ureter by the pelvic mass. Small amount of ascites. No free air or surgically emergent finding. Time Spent Managing Pts Care (In Minutes): 55
[2020-08-21 14:57] LABS: Urine Blood NEGATIVE (NEG); Urine Glucose NEGATIVE (NEG); Urine Protein NEGATIVE (NEG); Urine pH 5.5 (5.0-7.0)
[2020-08-21] MEDS ORDERED: MORPHINE 2 MG/ML SYR ONE (15:43)
[2020-08-21] MEDS ORDERED: NA CHLORIDE 0.9% 1,000 ML IV SCH (17:11)
[2020-08-21] MEDS ORDERED: ALPRAZOLAM 0.25 MG TABLET PO PRN (17:11)
[2020-08-21] MEDS ORDERED: ACETAMINOPHEN 500 MG TAB PO PRN (17:11)
[2020-08-21 17:14] VITALS: BMI 19.1
[2020-08-21] MEDS: MORPHINE 2 MG/ML SYR IV PRN ×2 (18:20→23:09)
[2020-08-21] MEDS: ONDANSETRON 4 MG/2 ML VIAL IV PRN (18:20)
[2020-08-21] MEDS: MORPHINE 15 MG IR TAB PO PRN (20:12)
[2020-08-21] MEDS: FAMOTIDINE 20 MG TAB PO SCH (20:13)
[2020-08-21] MEDS: DOCUSATE NA 100 MG CAP PO SCH (20:13)
[2020-08-21] MEDS: FENTANYL 75 MCG/PATCH TD SCH ×2 (21:29→21:30)
[2020-08-21] MEDS: NICOTINE 21 MG/PAT TD SCH ×2 (21:33→21:47)
[2020-08-22] MEDS: MORPHINE 2 MG/ML SYR IV PRN ×4 (01:14→13:36)
[2020-08-22] MEDS: MORPHINE 15 MG IR TAB PO PRN ×2 (03:21→10:40)
[2020-08-22 04:39] LABS: Urine Appearance CLEAR; Urine Bilirubin NEGATIVE (NEG); Urine Blood NEGATIVE (NEG); Urine Color YELLOW; Urine Glucose NEGATIVE (NEG); Urine Protein NEGATIVE (NEG)
[2020-08-22 04:44] LABS: Urine Microscopic Reflex NO UMIC
[2020-08-22 04:51] LABS: BUN Blood Urea Nitrogen 11 mg/dL (7-18); Bicarbonate 29 mmol/L (21-32); Glucose Level 98 mg/dL (74-106); Magnesium 1.6 mg/dL (1.8-2.4); Potassium 3.9 mmol/L (3.5-5.1); Sodium Level 137 mmol/L (136-145)
[2020-08-22 04:52] LABS: Absolute Lymphocytes (CBC) 0.7 K/uL (0.7-4.9); Basophils % 0.4 % (0-1.3); Hematocrit 24.6 % (36.0-45.0); Lymphocytes % 5.7 % (15.3-44.8); MPV 9.2 fL (7.6-11.3); RBC Red Blood Cell Count 2.44 M/uL (3.86-4.86)
[2020-08-22] MEDS ORDERED: MAGNESIUM SULFATE 1 gm IVPB 1 GM/100 ML BAG IV ONE (06:30)
[2020-08-22] MEDS ORDERED: POTASSIUM 25 MEQ EFFERV TAB PO ONE ×2 (06:30)
[2020-08-22] MEDS ORDERED: ENOXAPARIN 40 MG/0.4 ML SQ SCH (09:00)
[2020-08-22] MEDS ORDERED: FOLIC ACID 1 MG TABLET PO SCH (09:00)
[2020-08-22] MEDS ORDERED: THIAMINE HCL 100 MG TABLET PO SCH (09:00)
[2020-08-22] MEDS: FAMOTIDINE 20 MG TAB PO SCH (09:15)
[2020-08-22] MEDS: DOCUSATE NA 100 MG CAP PO SCH (09:16)
[2020-08-22] MEDS: ONDANSETRON 4 MG/2 ML VIAL IV PRN (09:16)
[2020-08-22] MEDS ORDERED: DIAZEPAM 10 MG/2 ML INJ SYRINGE IV PRN (11:19)
[2020-08-22] MEDS ORDERED: DIAZEPAM 10 MG/2 ML INJ SYRINGE IV ONE (11:19)
[2020-08-22 13:04] VITALS: TEMP 96.9; O2SAT 95
[2020-08-22 16:54] VITALS: BP 137/95
--- NOTE | 2020-08-30 05:32 | P.DS ---
Discharge Date: 08/22/20 Primary Care Provider: Dr. Clark; Oncology-Dr. Hamilton Disposition: HOSPICE-HOME Discharge Condition: GOOD Reason for Admission: Intractable abdominal pain Brief History of Present Illness: 65-year-old female with history of stage IV lung cancer with metastasis to the abdomen and pelvis. Patient presented to the emergency room with intractable abdominal pain and back pain. Patient reports she ran out of pain medication 2 days ago. Patient is seen by oncology. She takes fentanyl transdermal 50 mcg every 72 hr and morphine sulfate immediate release 15 mg every 4 hr. She apparently ran out of her immediate release medication. Pain continued to get worse. Pain mainly to the left side. It radiates to the back. She had some nausea. Patient denies any fever, chills. No dysuria noted. She denies any chest pain or shortness of breath. She came to the ER for further evaluation. In the ER patient was evaluated. White count 11, hemoglobin 8.6. Platelet count 152. Sodium 138, potassium 3.4. BUN of 14, creatinine 0.68 with a GFR greater than 90. Glucose 96. Magnesium 1.3. Urinalysis pending. Lipase 52. CT scan shows no suspicious lung masses. Renal function remained symmetric. Hydronephrosis of the left collecting system without obstructing calculus noted. Dilation due to extrinsic compression from large pelvic mass. Enhancing pelvic mass measures 9.4 x 6.7 cm substantially larger from March 2020. Mass at that time measured 5.1 x 4.3 cm. No bladder abnormalities noted. A very large lobulated vigorously enhancing adrenal region mass is have substantially enlarged from a prior study. The confluence of malignant tissue on the left side measures 13.3 x 10.6 cm compared to 10.5 x 7.6 cm prior. The right adrenal mass shows similar enlargement. Fatou aortic/pericaval lymphadenopathy has progress. Left iliac crest known lesion has in large. The intraosseous lesion has an large from 1.6 cm to 2.8 cm. The extraosseous component of the mass along the inner table is approximately 2.7 cm which is new from prior imaging. Patient was given multiple rounds of pain medication without significant relief. Patient was admitted for further evaluation and treatment. ER physician spoke to her oncologist who agreed with plan to admit to control pain. Hospital Course: Family has decided to proceed with hospice care. We will go ahead and arrange for hospice; patient will discharge with hospice care. Vital Signs/Physical Exam: Temp Pulse Resp BP Pulse Ox 96.9 F 102 H 18 137/95 H 97 08/22/20 16:00 08/22/20 16:00 08/22/20 16:00 08/22/20 16:00 08/22/20 16:00 General: Alert, In no apparent distress, Oriented x3 Laboratory Data at Discharge: WBC 12.20 K/uL (4.3-10.9) H 08/22/20 04:11 Hgb 8.0 g/dL (12.0-15.0) L 08/22/20 04:11 Hct 24.6 % (36.0-45.0) L 08/22/20 04:11 Plt Count 125 K/uL (152-406) L 08/22/20 04:11 Sodium 137 mmol/L (136-145) 08/22/20 04:11 Potassium 3.9 mmol/L (3.5-5.1) 08/22/20 04:11 BUN 11 mg/dL (7-18) 08/22/20 04:11 Creatinine 0.45 mg/dL (0.55-1.3) L 08/22/20 04:11 Glucose 98 mg/dL (74-106) 08/22/20 04:11 Magnesium 1.6 mg/dL (1.8-2.4) L 08/22/20 04:11 Total Bilirubin 0.9 mg/dL (0.2-1.0) 08/21/20 11:00 AST 34 U/L (15-37) 08/21/20 11:00 ALT 12 U/L (12-78) 08/21/20 11:00 Alkaline Phosphatase 104 U/L (45-117) 08/21/20 11:00 Lipase 52 U/L (73-393) L 08/21/20 11:00 Home Medications: Aspirin [Adult Low Dose Aspirin EC] 81 mg PO DAILY 04/26/20 Carvedilol [Coreg] 12.5 mg PO BID 04/26/20 Morphine Sulfate [Morphine Sulfate ER] 30 mg PO Q8H PRN 04/26/20 Pantoprazole [Protonix Tab*] 40 mg PO DAILY 04/26/20 Zolpidem Tartrate 10 mg PO DAILY 04/26/20 Duloxetine HCl 1 tab PO DAILY 05/19/20 Fluconazole 1 tab PO DAILY 05/19/20 Gabapentin [Gralise] 1 tab PO TID 05/19/20 Hydrocodone Bit/Acetaminophen [Hydrocodon-Acetaminophn 10-325] 1 tab PO Q8HR 05/19/20 Olanzapine [Zyprexa] 1 tab PO DAILY 05/19/20 Potassium Chloride 1 tab PO BID 05/19/20 Trazodone [Desyrel*] 1 tab PO DAILY 05/19/20 dexAMETHasone [Dexamethasone] 1 tab PO BID 05/19/20 predniSONE [Deltasone*] 1 tab PO DAILY 05/19/20 ALPRAZolam [Xanax*] 0.25 mg PO TIDP PRN #30 tab 08/22/20 Docusate [Colace Cap*] 100 mg PO BID #30 cap 08/22/20 Morphine Ir [MSIR (Morphine Sulfate IR)*] 15 mg PO Q6HP PRN #30 tab 08/22/20 Nicotine [Nicoderm*] 21 mg TD DAILY #30 patch.td24 08/22/20 New Medications: Docusate [Colace Cap*] 100 mg PO BID #30 cap Morphine Ir [MSIR (Morphine Sulfate IR)*] 15 mg PO Q6HP PRN #30 tab PRN Reason: Pain Scale 5-7 (Moderate) Nicotine [Nicoderm*] 21 mg TD DAILY #30 patch.td24 ALPRAZolam [Xanax*] 0.25 mg PO TIDP PRN #30 tab PRN Reason: Anxiety Followup: Jailyn Krishnamurthy MD [Primary Care Provider] - Time spent managing pt's care (in minutes): 35
== END 2020-08-22 19:20 | disposition hospice, home (50) ==
LOC: ER 10:11 → ERHOLD 14:23 → 2ND 16:56
PROVIDERS: ADMIT Family Medicine; ATTEND Hospitalist
DX: G89.3 Neoplasm related pain (acute) (chronic) (principal); R10.9 Unspecified abdominal pain; M54.9 Dorsalgia, unspecified; C34.90 Malignant neoplasm of unspecified part of unspecified bronchus or lung; C79.70 Secondary malignant neoplasm of unspecified adrenal gland; C79.51 Secondary malignant neoplasm of bone; C79.89 Secondary malignant neoplasm of other specified sites; N13.30 Unspecified hydronephrosis; R59.0 Localized enlarged lymph nodes; I10 Essential (primary) hypertension; F41.9 Anxiety disorder, unspecified; K57.92 Diverticulitis of intestine, part unspecified, without perforation or abscess without bleeding; F17.210 Nicotine dependence, cigarettes, uncomplicated; Z71.6 Tobacco abuse counseling; Z79.891 Long term (current) use of opiate analgesic; Z79.82 Long term (current) use of aspirin; Z66 Do not resuscitate; Z20.822 Contact with and (suspected) exposure to COVID-19
CPT/HCPCS: 96365; 96361; 85025 ×2; 80048 ×2; 36415; 83735 ×2; 82565; 80076; 81003; 83690; 74177; 94010; 96375; 99285; U0003; Q9967; J1650; J3360 ×2; J3010 ×2; J3475 ×2; J2270 ×7; J7030 ×3; J2405 ×3; G0378 ×3; 81015